=== PATIENT | male | born 1990 | race Caucasian/White ===

== ENCOUNTER 2016-11-28 14:08 | Emergency (ER) | payer SELFPAY ==
[~2016-11-28] VITALS: Ht 162.6 cm; Wt 63.5 kg
--- NOTE | 2016-11-28 14:16 | NUR ---
PT BEING INAPPROPIATE DURING TRIAGE. PT STATES USING POT DAILY AND IT IS NOT CONSIDERED DRUG.
--- NOTE | 2016-11-28 14:34 | NUR ---
Patient discharged to home in stable conditon. Written and verbal after care instructions given. Patient verbalizes understanding of instructions. Patient has avulsion on the right index finger, dry dressing placed, no further bleeding noted. No further distress noted. Ambulated from ER with stable gait. All belonings with patient.
[2016-11-28 14:35] VITALS: BP 112/67
== END 2016-11-28 14:37 | disposition home or self-care (01) ==
LOC: ER 14:11
DX: S61.300A Unspecified open wound of right index finger with damage to nail, initial encounter (principal); W25.XXXA Contact with sharp glass, initial encounter; Y93.89 Activity, other specified; Y99.8 Other external cause status; Y92.89 Other specified places as the place of occurrence of the external cause
CPT/HCPCS: A4663

== ENCOUNTER 2018-01-31 10:48 | Inpatient (IN) | payer MEDICAID ==
[~2018-01-31] VITALS: Ht 172.7 cm; Wt 67.6 kg
[2018-01-31] VITALS (13 sets, daily range): BP systolic 96–127; BP diastolic 23–76
[2018-01-31] MEDS ORDERED: ONDANSETRON 4 MG/2 ML VIAL IV ONE ×2 (11:00→13:00)
[2018-01-31] MEDS ORDERED: MORPHINE SULFATE 2 MG/1 ML DISP.SYRIN IV ONE ×2 (11:00→13:00)
[2018-01-31] MEDS ORDERED: IV NORMAL SALINE 1000 ML BAG IV ONE ×2 (11:00→11:45)
[2018-01-31] MEDS ORDERED: ONDANSETRON 4 MG/2 ML VIAL ONE ×2 (11:02→12:54)
[2018-01-31] MEDS ORDERED: MORPHINE SULFATE 4 MG/1 ML DISP.SYRIN ONE ×2 (11:02→12:53)
[2018-01-31 11:09] LABS: BASOPHILS # (AUTO) 0.1 K/uL (0.0-8.0); BASOPHILS % (AUTO) 0.6 % (0.0-2.0); EOSINOPHILS % (AUTO) 0.1 % (0.0-7.0); HEMATOCRIT 38.9 % (36.7-47.1); HEMOGLOBIN 13.1 g/dL (12.5-16.3); LYMPHOCYTES # (AUTO) 1.5 K/uL (20.0-40.0); LYMPHOCYTES % (AUTO) 9.5 % (20.5-51.5); MEAN CORPUSCULAR HEMOGLOBIN 30.2 uug (23.8-33.4); MEAN CORPUSCULAR HGB CONC 34 g/dL (32.5-36.3); MEAN CORPUSCULAR VOLUME 89.9 fL (73.0-96.2); MONOCYTES # (AUTO) 0.9 K/uL (2.0-10.0); NEUTROPHILS # (AUTO) 12.8 K/uL (1.8-8.9); NEUTROPHILS % (AUTO) 83.8 % (38.5-71.5); PLATELET COUNT (AUTO) 258 K/uL (152-348); RED BLOOD CELL COUNT(AUTO) 4.32 MIL/uL (4.06-5.63); WHITE BLOOD COUNT (AUTO) 15.2 K/uL (3.6-10.2)
--- NOTE | 2018-01-31 11:11 | NUR ---
PT IS IN BED #1B. DR CARBAJAL EVALUATED THE PT.
[2018-01-31 11:21] LABS: CREATININE 0.8 mg/dL (0.6-1.3); POTASSIUM 3.7 mmol/L (3.5-5.1)
--- NOTE | 2018-01-31 11:25 | NUR ---
CODE SEPSIS WAS CALLED BY DR CARBAJAL. CODE SEPSIS PROTOCOL STARTED.
[2018-01-31 11:33] LABS: BILIRUBIN,DIRECT 0.1 mg/dL (0.0-0.2); BILIRUBIN,TOTAL 0.6 mg/dL (0.2-1.0); TOTAL PROTEIN, SERUM 7.4 g/dL (6.4-8.2)
--- NOTE | 2018-01-31 11:42 | NUR ---
DR GUAMAN WAS CALLED BY DR CARBAJAL REQUEST, WAITING EOR CALL BACK.
[2018-01-31] MEDS ORDERED: CEFTRIAXONE 1 G in IV DEXTROSE 5% 50 ML IV ONE (11:45)
[2018-01-31] MEDS ORDERED: AZITHROMYCIN IV 500 MG in IV DEXTROSE 5% 250 ML IV ONE (11:45)
[2018-01-31] MEDS ORDERED: AZITHROMYCIN 500 MG VIAL IV ONE (11:49)
[2018-01-31 11:50] LABS: *BILIRUBIN,URIN NEGATIVE (NEGATIVE); *BLOOD, URINE NEGATIVE (NEGATIVE); *CLARITY,URINE CLEAR (CLEAR); *KETONES,URINE NEGATIVE (NEGATIVE); *PROTEIN,URINE 1+ (NEGATIVE); *UROBILINOGEN,URINE 0.2 E.U./dl (NORMAL); LEUKOCYTE ESTERASE ,URINE NEGATIVE (NEGATIVE); NITRITE, URINE NEGATIVE (NEGATIVE); UGLUCOSE NEGATIVE (NEGATIVE)
[2018-01-31] MEDS ORDERED: CEFTRIAXONE 1 G VIAL ONE (11:50)
[2018-01-31 12:08] LABS: *COLOR,URINE DARK YELLOW (YELLOW)
[2018-01-31 12:10] LABS: BACTERIA,URINE FEW /HPF (NONE SEEN); MUCUS,URINE FEW /LPF (0-FEW); SQUAMOUS EPITHELIAL CELL,UR FEW /HPF (NONE SEEN)
[2018-01-31 12:42] LABS: *AMPHETAMINE, URINE NEGATIVE (NEGATIVE); *BARBITURATE, URINE NEGATIVE (NEGATIVE); *CANNABINOID, URINE POSITIVE (NEGATIVE); *COCCAINE, URINE NEGATIVE (NEGATIVE); *OPIATE, URINE POSITIVE (NEGATIVE); *PHENCYCLIDINE SCREEN,URINE NEGATIVE (NEGATIVE)
[2018-01-31] MEDS ORDERED: ACETAMINOPHEN ES 500 MG TABLET ONE (12:48)
[2018-01-31] MEDS ORDERED: ACETAMINOPHEN ES 500 MG TABLET PO ONE (13:00)
[2018-01-31] MEDS ORDERED: IOHEXOL 350 100 ML INFUS..BTL ONE (13:06)
[2018-01-31] MEDS ORDERED: IV NORMAL SALINE 100 ML ONE (13:06)
[2018-01-31] MEDS ORDERED: ALBUTEROL SULFATE 2.5 MG/3 ML NEBU NEB ONE (13:15)
[2018-01-31] MEDS ORDERED: ONDANSETRON 4 MG/2 ML VIAL IV PRN (13:15)
[2018-01-31] MEDS ORDERED: IPRATROPIUM BROMIDE 0.5 MG/2.5 ML NEBU NEB ONE (13:15)
[2018-01-31] MEDS ORDERED: IPRATROPIUM BROMIDE 0.5 MG/2.5 ML NEBU ONE (13:23)
[2018-01-31] MEDS ORDERED: ALBUTEROL SULFATE 2.5 MG/3 ML NEBU ONE (13:23)
[2018-01-31] MEDS ORDERED: NITROGLYCERIN 0.4 MG/TAB BOTTLE SL PRN (13:30)
[2018-01-31] MEDS ORDERED: IPRATROPIUM BROMIDE 0.5 MG/2.5 ML NEBU NEB PRN (13:45)
[2018-01-31] MEDS ORDERED: ALBUTEROL SULFATE 2.5 MG/3 ML NEBU NEB PRN (13:45)
[2018-01-31] MEDS: ASPIRIN EC 81 MG TABLET.DR PO SCH (13:45)
[2018-01-31] MEDS: THIAMINE HCL 100 MG TABLET PO SCH (14:00)
[2018-01-31] MEDS: MULTIVITAMINS,THERAPEUTIC TABLET PO SCH (14:00)
[2018-01-31] MEDS: IV NS 1000 ML 1,000 ML IV PRN ×2 (14:00→23:55)
[2018-01-31] MEDS: FOLIC ACID 1 MG TABLET PO SCH (14:00)
--- NOTE | 2018-01-31 14:20 | NUR ---
PT WAS TRANSFERED TO ROOM #3 CCU. REPORT WAS GIVEN TO CCU RN.
[2018-01-31] MEDS: PANTOPRAZOLE SODIUM 40 MG TABLET.DR PO SCH (14:25)
[2018-01-31] MEDS ORDERED: ALBUTEROL SULFATE 2.5 MG/ 0.5 ML NEBU NEB PRN (14:30)
--- NOTE | 2018-01-31 14:39 | NUR ---
Clinical Pharmacy Note: Vancomycin Dosing per Pharmacy Subjective: Vancomycin IV to start on this 27 yo male patient for pna Objective: BUN 12/Scr 0.8 WBC 15.2 Temperature 103.4 Assessment/Plan: Will start vancomycin 1000mg IVPB Q9hr for a predicted vancomycin steady state trough level of 16.4 mcg/ml. 1st dose is due today at 1600. Will draw a vancomycin trough level prior to the 4th dose of vancomycin (not ordered yet). Will monitor renal function and adjust vancomycin dose, if needed, should renal function change significantly. Will follow daily.
[2018-01-31 15:12] LABS: ABG BASE EXCESS -2.3 mmol/L; ABG HCO3 21.7 mmol/L; ABG PH 7.411 (7.350-7.450); ABG PO2 88.3 mmHg (75.0-100.0); ABG SITE RIGHT RADIAL; ABG TOTAL HEMOGLOBIN 11.9 G/dL (13.5-18.0); MetHb 0.5 % (0.0-1.5); O2Hb 94.7 % (94.0-97.0)
[2018-01-31] MEDS ORDERED: VANCOMYCIN IV 1 G in PREMIXED 0 EACH IV SCH (16:00)
[2018-01-31] MEDS: MORPHINE SULFATE 2 MG/1 ML DISP.SYRIN IV PRN ×2 (16:51→20:30)
[2018-01-31] MEDS: LORAZEPAM 0.5 MG TABLET PO PRN ×2 (16:51→23:55)
[2018-01-31] MEDS: PIPERACILLIN/TAZOBACTAM/D5W 50 ML IV SCH ×2 (18:10→23:55)
--- NOTE | 2018-01-31 19:30 | NUR ---
Report received; patient AAO. Tachypneic, with shallow and occasional grunting respirations. Patient claims with pain on inspiration. O2 at 10 L MAsk. Sat above 95%. Will monitor. Assessment done. Addendum: 02/01/18 at 0108 by BRANDT OH RN Amended: Links added.
--- NOTE | 2018-01-31 20:30 | NUR ---
Medicated with Morphine IV for chest pain/tightness. Seen by Kyrie CHAVEZ. Addendum: 02/01/18 at 0111 by BRANDT OH RN Amended: Links added.
[2018-01-31] MEDS ORDERED: ENOXAPARIN SODIUM 30 MG/0.3 ML DISP.SYRIN SUBCUT SCH (21:00)
--- NOTE | 2018-01-31 21:00 | NUR ---
Morphine effective. BP stable.
[2018-01-31] MEDS: LEVOFLOXACIN 750MG/D5W 750 MG in PREMIXED 1 EACH IV SCH (21:16)
--- NOTE | 2018-01-31 23:55 | NUR ---
Patient mildly agitated. Stood up at side of bed to void. Claims still with mid chest pain/tightness during inspiration. Ativan given.
[2018-02-01] VITALS (18 sets, daily range): BP systolic 109–143; BP diastolic 51–78
--- NOTE | 2018-02-01 | NUR ---
Up to BS with very little assistance; gait steady. Had a soft brown BM. Bath given. Patient cooperative. Tolerated care fairly well. Back to bed without problems.
[2018-02-01] MEDS ORDERED: MORPHINE SULFATE 4 MG/1 ML DISP.SYRIN ONE ×2 (00:41→05:15)
[2018-02-01] MEDS: MORPHINE SULFATE 2 MG/1 ML DISP.SYRIN IV PRN ×4 (00:41→20:31)
--- NOTE | 2018-02-01 00:45 | NUR ---
Ate some jello; no swallowing difficulty. O2 changed to 4L NC per patient's request. Sat 94%. Will monitor.
[2018-02-01] MEDS: PIPERACILLIN/TAZOBACTAM/D5W 50 ML IV SCH ×3 (05:22→18:10)
[2018-02-01 05:49] LABS: BASOPHILS % (AUTO) 0.3 % (0.0-2.0); EOSINOPHILS # (AUTO) 0.1 K/uL (0.0-0.7); EOSINOPHILS % (AUTO) 0.8 % (0.0-7.0); HEMATOCRIT 31.9 % (36.7-47.1); HEMOGLOBIN 10.8 g/dL (12.5-16.3); LYMPHOCYTES # (AUTO) 1.6 K/uL (20.0-40.0); LYMPHOCYTES % (AUTO) 13.7 % (20.5-51.5); MEAN CORPUSCULAR HEMOGLOBIN 30.3 uug (23.8-33.4); MEAN CORPUSCULAR HGB CONC 34 g/dL (32.5-36.3); MEAN CORPUSCULAR VOLUME 89.4 fL (73.0-96.2); MONOCYTES # (AUTO) 0.5 K/uL (2.0-10.0); MONOCYTES % (AUTO) 4.3 % (0.0-11.0); NEUTROPHILS # (AUTO) 9.7 K/uL (1.8-8.9); NEUTROPHILS % (AUTO) 80.9 % (38.5-71.5); PLATELET COUNT (AUTO) 155 K/uL (152-348); RED BLOOD CELL COUNT(AUTO) 3.56 MIL/uL (4.06-5.63)
[2018-02-01 06:00] LABS: BILIRUBIN,TOTAL 1.1 mg/dL (0.2-1.0); CREATININE 0.8 mg/dL (0.6-1.3); MAGNESIUM 1.3 mg/dL (1.8-2.4); PHOSPHOROUS 2.8 mg/dL (2.5-4.9); POTASSIUM 3.6 mmol/L (3.5-5.1); TOTAL PROTEIN, SERUM 5.6 g/dL (6.4-8.2)
[2018-02-01 06:12] LABS: THYROID STIMULATING HORMONE 8.173 mIU/mL (0.358-3.740)
[2018-02-01] MEDS: PANTOPRAZOLE SODIUM 40 MG TABLET.DR PO SCH (06:40)
[2018-02-01] MEDS: LORAZEPAM 0.5 MG TABLET PO PRN ×2 (06:46→17:00)
--- NOTE | 2018-02-01 06:58 | NUR ---
O2 now @ 3L NC; sat above 94%. Patient still with mid chest sharp pain worst during inspiration. Patient claims "it's hard to take breaths." Medicated with Morphine IV PRN. VS stable. Addendum: 02/01/18 at 0659 by BRANDT OH RN Amended: Links added.
--- NOTE | 2018-02-01 07:30 | NUR ---
RECIEVED PT LYING IN BED VERY SOUND ASLEEP BUT EASILY AROUSABLE. NO APPARENT DISTRESS NOTED.
--- NOTE | 2018-02-01 08:30 | NUR ---
PT ATE VERY LITTLE AND WENT BACK TO SLEEP.
[2018-02-01] MEDS: MULTIVITAMINS,THERAPEUTIC TABLET PO SCH (08:46)
[2018-02-01] MEDS: FOLIC ACID 1 MG TABLET PO SCH (08:46)
[2018-02-01] MEDS: THIAMINE HCL 100 MG TABLET PO SCH (08:46)
[2018-02-01] MEDS: ASPIRIN EC 81 MG TABLET.DR PO SCH (08:46)
[2018-02-01] MEDS: IV NS 1000 ML 1,000 ML IV PRN (09:50)
--- NOTE | 2018-02-01 10:00 | NUR ---
SEEN AND EXAMINED BY DR MCKNIGHT, NO ORDERS MADE BUT OKEYED IF PT IS DOWNGRADED.
--- NOTE | 2018-02-01 10:15 | NUR ---
PT HAD AN ACCIDENT WITH LOOSE BM IN BED SMALL AMOUNT. CLEANED UP HIMSELF WITH MINIMAL ASSISTANCE. NO C/O ANY DISCOMFORTS.
[2018-02-01] MEDS ORDERED: POTASSIUM CHLORIDE 20 MEQ POWDER PACKET PO ONE (10:30)
[2018-02-01] MEDS ORDERED: MAGNESIUM SULFATE/D5W 100 ML IV SCH (10:30)
[2018-02-01] MEDS: MAGNESIUM SULFATE/D5W 100 ML IV SCH ×4 (10:54→14:32)
--- NOTE | 2018-02-01 10:55 | NUR ---
MAGNESIUM SULFATE 4GMS ORDERED BY MD DR BARRON FOR LOW MAG. LEVEL. KLOR 40MEQ ALSO GIVEN ORALLY ORDERED.
--- NOTE | 2018-02-01 11:45 | NUR ---
SEEN AND EXAMINED BY MARKOS GANG HEAD SAW OPERATOR WITH OK TO TRANSFER TO TELEMETRY. IVF RATE DOWN TO 80ML ORDERED.
--- NOTE | 2018-02-01 15:00 | NUR ---
SEEN AND EXAMINED BY DR MONIQUE WITH NEW ORDER. SWITCHED PT WITH YAMILA Lugo PER PT'S REQUEST SECONDARY TO YAMILA Lugo. PT IN CCU1 IS SO CONFUSED WITH PARANOIA.
[2018-02-01 15:12] LABS: IRON, SERUM 21 ug/dL (50-175)
[2018-02-01] MEDS: ACETAMINOPHEN 325 MG TABLET PO PRN (17:00)
[2018-02-01] MEDS: FERROUS SULFATE 325 MG TABEC PO SCH ×2 (18:10→20:30)
--- NOTE | 2018-02-01 18:49 | NUR ---
Pt transferred from CCU. Awake, A&O x4. Verbally responsive, noted with pleasant attitude. Pt admitted for PNA. Rec'd on Zosyn for PNA and IVF of NS @80ml/hr. No adverse side effects noted. On tele, SR in the 80s. Denies pain at this time. Denies dyspnea. NOted with dry cough. Will endorse to incoming nurse.
--- NOTE | 2018-02-01 19:25 | NUR ---
RECEIVED PT LYING IN BED. ASLEEP BUT EASILY AROUSE. AOX4. COMPLAINED OF MILD SOB. PROVIDED O2 AT 2LPM VIA NC. O2 SAT AT97%. IV SITE ON LEFT INTACT AND PATENT. IVF INFUSING. SR ON TELE AT 745/MIN. SAFETY MEASURE INITAITED AND CALL REZA WITHIN REACHED.
[2018-02-01] MEDS: LACTOBACILLUS RHAMNOSUS GG 1 EACH CAPSULE PO SCH (20:30)
[2018-02-01] MEDS: CEFEPIME HCL 1 G in IV DEXTROSE 5% 50 ML IV SCH (21:17)
[2018-02-01] MEDS: LEVOFLOXACIN 750MG/D5W 750 MG in PREMIXED 1 EACH IV SCH (21:50)
[2018-02-02] VITALS: BP 116/79
[2018-02-02] MEDS: LORAZEPAM 0.5 MG TABLET PO PRN ×3 (00:08→14:36)
[2018-02-02 04:00] VITALS: BP 116/76
[2018-02-02] MEDS: MORPHINE SULFATE 2 MG/1 ML DISP.SYRIN IV PRN ×3 (04:18→18:28)
[2018-02-02] MEDS: PANTOPRAZOLE SODIUM 40 MG TABLET.DR PO SCH (06:07)
[2018-02-02] MEDS: LEVOTHYROXINE SODIUM 25 MCG TABLET PO SCH (06:07)
--- NOTE | 2018-02-02 06:09 | NUR ---
AOX4. DENIES ANY FURTHER PAIN OR SOB. O2 SAT AT 96% WITH O2 AT 2LPM VIA NC IN PLACE. NO COUGHING NOTED. SLEPT WELL LAST NIGHT. IN NO ACUTE DISTRESS. SR ON TELE AT 65/MIN. IV ON LEFT AC INTACT AND PATENT. IVF INFUSING. SAFETY MEASURE MAINTAINED AND CALL REZA WITHIN REACH.
--- NOTE | 2018-02-02 07:00 | NUR ---
received report from backhoe operator. patient on bed asleep. A and O x 4. no acute distress noted, IV access on the left AC #18 running NS @80 cc/hr, infusing well. No complaints of pain/discomfort at this time. safety precs observed at all times. comfort measures provided. call light within reach. will continue to monitor closely.
[2018-02-02] MEDS: IV NS 1000 ML 1,000 ML IV PRN (07:05)
[2018-02-02 07:15] LABS: BASOPHILS % (AUTO) 0.2 % (0.0-2.0); EOSINOPHILS # (AUTO) 0.1 K/uL (0.0-0.7); EOSINOPHILS % (AUTO) 1.5 % (0.0-7.0); HEMATOCRIT 32.4 % (36.7-47.1); HEMOGLOBIN 11.1 g/dL (12.5-16.3); LYMPHOCYTES # (AUTO) 0.7 K/uL (20.0-40.0); MEAN CORPUSCULAR HEMOGLOBIN 30.9 uug (23.8-33.4); MEAN CORPUSCULAR HGB CONC 34 g/dL (32.5-36.3); MEAN CORPUSCULAR VOLUME 90.1 fL (73.0-96.2); MONOCYTES # (AUTO) 0.3 K/uL (2.0-10.0); MONOCYTES % (AUTO) 3.6 % (0.0-11.0); NEUTROPHILS # (AUTO) 8.1 K/uL (1.8-8.9); NEUTROPHILS % (AUTO) 86.7 % (38.5-71.5); PLATELET COUNT (AUTO) 175 K/uL (152-348); WHITE BLOOD COUNT (AUTO) 9.3 K/uL (3.6-10.2)
[2018-02-02 07:38] LABS: CARBON DIOXIDE 26 mmol/L (21-32); CHLORIDE 102 mmol/L (98-107); CREATININE 0.7 mg/dL (0.6-1.3); GLUCOSE 93 mg/dL (74-106); MAGNESIUM 1.8 mg/dL (1.8-2.4); POTASSIUM 3.8 mmol/L (3.5-5.1); UREA NITROGEN, BLOOD 5 mg/dL (7-18)
[2018-02-02] MEDS: LACTOBACILLUS RHAMNOSUS GG 1 EACH CAPSULE PO SCH ×2 (08:07→20:17)
[2018-02-02] MEDS: MULTIVITAMINS,THERAPEUTIC TABLET PO SCH (08:07)
[2018-02-02] MEDS: FERROUS SULFATE 325 MG TABEC PO SCH ×2 (08:08→20:17)
[2018-02-02] MEDS: ASPIRIN EC 81 MG TABLET.DR PO SCH (08:08)
[2018-02-02] MEDS: THIAMINE HCL 100 MG TABLET PO SCH (08:08)
[2018-02-02] MEDS: FOLIC ACID 1 MG TABLET PO SCH (08:08)
--- NOTE | 2018-02-02 08:30 | NUR ---
Patient complained of SOB and was feeling anxious, o2 sat 96%. Ativan 1mg PO q6PRN given. will continue to monitor.
[2018-02-02] MEDS: CEFEPIME HCL 1 G in IV DEXTROSE 5% 50 ML IV SCH ×2 (09:06→20:17)
[2018-02-02] MEDS: ACETAMINOPHEN 325 MG TABLET PO PRN (10:13)
--- NOTE | 2018-02-02 10:30 | NUR ---
PATIENT STATED HE HAD THE URGE TO SMOKE AND REQUESTED IF HE CAN HAVE A NICOTINE PATCH. INFORMED DR. BARRON, GAVE ORDER FOR NICOTINE PATCH 21 MG TD Q DAILY, ORDERS NOTED AND CARRIED OUT. WILL CONTINUE TO MONITOR
[2018-02-02] MEDS: NICOTINE 21 MG/24HR PATCH TD SCH (10:35)
[2018-02-02 11:43] VITALS: BP 98/56
--- NOTE | 2018-02-02 12:00 | NUR ---
PATIENT'S IV ACCESS ON THE LEFT AC #18 WAS LEAKING. REINSERTED IV ON THE RIGHT FOREARM #22, USING ASEPTIC TECHNIQUE, GOOD VENOUS RETURN NOTED AND WELL TOLERATED BY PATIENT. CONTINUED TO INFUSE IVF NS @80 CC/HR. WILL CONTINUE TO MONITOR.
[2018-02-02 15:41] VITALS: BP 108/73
[2018-02-02 17:18] LABS: *OCCULT BLOOD STOOL POSITIVE (NEGATIVE)
--- NOTE | 2018-02-02 18:21 | NUR ---
PATIENT IN ROOM. NO ACUTE DISTRESS NOTED. IV ACCESS ON THE RIGHT FOREARM #22 INTACT AND PATENT, IVF NS @ 80 CC/HR INFUSING WELL. STOOL SAMPLE FOR CDIFF SENT TO LAB EARLIER. PATIENT IS POSITIVE FOR OCCULT BLOOD IN STOOL. VITAL SIGNS WNL. NO COMPLAINTS OF PAIN AND DISCOMFORT AT THIS TIME. COMFORT MEASURES PROVIDED. ALL NEEDS ATTENDED AND ANTICIPATED. CALL LIGHT WITHIN REACH. WILL CONTINUE TO MONITOR.
--- NOTE | 2018-02-02 19:30 | NUR ---
PT IN ROOM ALERT AWAKE IN NO ACUTE DISTRESS. PT TO CONTINUE TO IV ABX THERAPY. NO FEVER OR CHILLS PRESENT. SKIN WARM TO TOUCH WITH NO FEVER. V/S ARE WNL. MAINTAINING IV HYDRATION CONTINUOUS. NS @80CC/HR. STATES MINOR PAIN WHILE COUGHING. ABLE TO MAKE NEEDS KNOWN. WILL CONTINUE TO MONITOR. CALL LIGHT WITHIN REACH.
[2018-02-02 20:00] VITALS: BP 117/81
[2018-02-02] MEDS: LEVOFLOXACIN 750 MG TABLET PO SCH (20:58)
--- NOTE | 2018-02-02 21:20 | NUR ---
PT C/O PAIN WHILE COUGH. MINIMAL PRODUCTIVE COUGH PRESENT AND STATES HE WANTS SOMETHING FOR SLEEP. DR GUAMAN MADE AWARE. NO REACTION TO RECENT ATB LEVAQUIN AND MAXEPIME. WILL CONTINUE TO MONITOR.
[2018-02-02] MEDS: GUAIFENESIN/DEXTROMETHORPHAN 5 ML UDC PO PRN (21:59)
[2018-02-02] MEDS: TEMAZEPAM 7.5 MG CAPSULE PO PRN (22:00)
[2018-02-03] MEDS: LORAZEPAM 0.5 MG TABLET PO PRN ×4 (03:19→23:15)
[2018-02-03] MEDS: MORPHINE SULFATE 2 MG/1 ML DISP.SYRIN IV PRN ×4 (03:20→21:27)
[2018-02-03 04:00] VITALS: BP 112/66
--- NOTE | 2018-02-03 05:49 | NUR ---
PT IN ROOM ASLEEP AT THIS TIME. RECENT MORPHINE AND ATIVAN GIVEN ABLE TO KEEP PT COMFORTABLE FROM HEADACHE. MAINTAINING IV FLUIDS OF NS AT 80ML/HR. CALL LIGHT PLACED WITHIN REACH. V/S ARE WNL.
[2018-02-03] MEDS: GUAIFENESIN/DEXTROMETHORPHAN 5 ML UDC PO PRN (05:59)
[2018-02-03] MEDS: PANTOPRAZOLE SODIUM 40 MG TABLET.DR PO SCH (06:00)
[2018-02-03] MEDS: LEVOTHYROXINE SODIUM 25 MCG TABLET PO SCH (06:00)
[2018-02-03 06:32] LABS: CARBON DIOXIDE 24 mmol/L (21-32); CHLORIDE 104 mmol/L (98-107); CREATININE 0.7 mg/dL (0.6-1.3); GLUCOSE 96 mg/dL (74-106); POTASSIUM 3.8 mmol/L (3.5-5.1); UREA NITROGEN, BLOOD 8 mg/dL (7-18)
[2018-02-03] MEDS: IV NS 1000 ML 1,000 ML IV PRN ×2 (06:40→18:49)
[2018-02-03 06:48] LABS: BASOPHILS % (AUTO) 0.3 % (0.0-2.0); EOSINOPHILS # (AUTO) 0.2 K/uL (0.0-0.7); HEMATOCRIT 33.1 % (36.7-47.1); HEMOGLOBIN 11.7 g/dL (12.5-16.3); LYMPHOCYTES % (AUTO) 17.8 % (20.5-51.5); MEAN CORPUSCULAR HEMOGLOBIN 31.2 uug (23.8-33.4); MEAN CORPUSCULAR HGB CONC 35 g/dL (32.5-36.3); MEAN CORPUSCULAR VOLUME 88.8 fL (73.0-96.2); MONOCYTES # (AUTO) 0.2 K/uL (2.0-10.0); MONOCYTES % (AUTO) 4.5 % (0.0-11.0); NEUTROPHILS % (AUTO) 74.4 % (38.5-71.5); PLATELET COUNT (AUTO) 217 K/uL (152-348); RED BLOOD CELL COUNT(AUTO) 3.73 MIL/uL (4.06-5.63)
--- NOTE | 2018-02-03 07:00 | NUR ---
PATIENT RECEIVED IN BED ASLEEP, NO ACUTE DISTRESS NOTED. IV ACCESS ON THE RIGHT FOREARM #22, INTACT AND PATENT, RUNNING IVF NS @80CC/HR, INFUSING WELL. NO COMPLAINTS OF PAIN AND DISCOMFORT. INDEPENDENT WITH ADLS. COMFORT MEASURES PROVIDED. CALL LIGHT WITHIN REACH. WILL CONTINUE TO MONITOR CLOSELY.
[2018-02-03 07:02] LABS: WHITE BLOOD COUNT (AUTO) 5.4 K/uL (3.6-10.2)
[2018-02-03] MEDS: LACTOBACILLUS RHAMNOSUS GG 1 EACH CAPSULE PO SCH ×2 (08:05→20:22)
[2018-02-03] MEDS: FOLIC ACID 1 MG TABLET PO SCH (08:06)
[2018-02-03] MEDS: MULTIVITAMINS,THERAPEUTIC TABLET PO SCH (08:06)
[2018-02-03] MEDS: ASPIRIN EC 81 MG TABLET.DR PO SCH (08:06)
[2018-02-03] MEDS: FERROUS SULFATE 325 MG TABEC PO SCH ×2 (08:06→20:22)
[2018-02-03] MEDS: NICOTINE 21 MG/24HR PATCH TD SCH (08:06)
[2018-02-03] MEDS: THIAMINE HCL 100 MG TABLET PO SCH (08:06)
--- NOTE | 2018-02-03 08:42 | NUR ---
NOTED IV ON THE RIGHT FOREARM #22 WAS DISLODGED, IV CATHETER STILL INTACT. REINSERTED IV ON THE LEFT HAND #22, USING ASEPTIC TECHNIQUE, GOOD VENOUS RETURN NOTED. WELL TOLERATED BY PATIENT. CONTINUED IVF NS @ 80 CC/HR. INFUSING WELL. WILL CONTINUE TO MONITOR CLOSELY.
[2018-02-03] MEDS: CEFEPIME HCL 1 G in IV DEXTROSE 5% 50 ML IV SCH ×2 (08:56→20:22)
[2018-02-03] MEDS: ACETAMINOPHEN 325 MG TABLET PO PRN ×2 (10:58→23:16)
[2018-02-03 11:41] VITALS: BP 113/73
[2018-02-03 12:15] LABS: *OCCULT BLOOD STOOL POSITIVE (NEGATIVE)
[2018-02-03 16:03] VITALS: BP 93/64
--- NOTE | 2018-02-03 18:53 | NUR ---
PATIENT REQUESTED IF HE CAN TAKE MONEY OUT OF [employer]. WENT DOWN TO GET MONEY FROM [employer]ONG WITH NURSING INTERNET MARKETING INTERN. BEFORE GIVING TO PATIENT RECOUNTED WHAT WAS IN ENVELOPE WITH ANDREA RN TO WITNESS. GAVE ENVELOPE TO PATIENT, HE TOOK OUT $100 IN TOTAL. RECOUNTED MONEY WITH ANDREA RN WITH CORRECT DOCUMENTATION, ASKED PATIENT TO SIGN ENVELOPE AND RETURNED IT TO [employer] WITH NURSING INTERNET MARKETING INTERN.
--- NOTE | 2018-02-03 18:56 | NUR ---
PATIENT IN STABLE CONDITION. NO SOB NOTED. NO COMPLAINS OF PAIN AND DISCOMFORT AT THIS TIME. IV SITE ON LEFT HAND #22 INTACT AND PATENT. IVF INFUSING WELL, PATIENT SHOWERED TODAY. VITAL SIGNS WNL ALL NEEDS ATTENDED AND ANTICIPATED. CALL LIGHT WITHIN REACH. WILL ENDORSE ACCORDINGLY
[2018-02-03 20:00] VITALS: BP 107/74
[2018-02-03] MEDS: LEVOFLOXACIN 750 MG TABLET PO SCH (20:22)
[2018-02-03] MEDS: TEMAZEPAM 7.5 MG CAPSULE PO PRN (21:27)
[2018-02-04] MEDS: MORPHINE SULFATE 2 MG/1 ML DISP.SYRIN IV PRN ×2 (04:55→11:44)
[2018-02-04 05:06] VITALS: BP 104/62
--- NOTE | 2018-02-04 06:00 | NUR ---
SLEPT WELL, CONTINUE TO HAVE BACK PAIN AND GIVEN MORPHINE PRN, REFUSED FLUIDS AFTER MIDNIGHT, DRINKS FLUIDS WELL, NON PRODUCTIVE COUGH, CONTINUE WITH ANTIBIOTICS,VSS,AFEBRILE.
[2018-02-04] MEDS: PANTOPRAZOLE SODIUM 40 MG TABLET.DR PO SCH (06:08)
[2018-02-04] MEDS: LEVOTHYROXINE SODIUM 25 MCG TABLET PO SCH (06:08)
[2018-02-04 06:49] LABS: BASOPHILS % (AUTO) 0.4 % (0.0-2.0); EOSINOPHILS # (AUTO) 0.2 K/uL (0.0-0.7); EOSINOPHILS % (AUTO) 4.4 % (0.0-7.0); HEMATOCRIT 35.8 % (36.7-47.1); HEMOGLOBIN 12.3 g/dL (12.5-16.3); LYMPHOCYTES # (AUTO) 1.2 K/uL (20.0-40.0); LYMPHOCYTES % (AUTO) 27.6 % (20.5-51.5); MEAN CORPUSCULAR HEMOGLOBIN 30.7 uug (23.8-33.4); MEAN CORPUSCULAR HGB CONC 34 g/dL (32.5-36.3); MEAN CORPUSCULAR VOLUME 89.6 fL (73.0-96.2); MONOCYTES # (AUTO) 0.3 K/uL (2.0-10.0); MONOCYTES % (AUTO) 7.8 % (0.0-11.0); NEUTROPHILS # (AUTO) 2.6 K/uL (1.8-8.9); NEUTROPHILS % (AUTO) 59.8 % (38.5-71.5); PLATELET COUNT (AUTO) 244 K/uL (152-348); WHITE BLOOD COUNT (AUTO) 4.3 K/uL (3.6-10.2)
--- NOTE | 2018-02-04 07:00 | NUR ---
Received pt sleeping on his left side in a semi fowlers position. No apparent s/s of SOB, pain, distress or discomfort at this time.
[2018-02-04 07:02] LABS: BILIRUBIN,TOTAL 0.2 mg/dL (0.2-1.0); CREATININE 0.8 mg/dL (0.6-1.3); MAGNESIUM 1.9 mg/dL (1.8-2.4); PHOSPHOROUS 5.1 mg/dL (2.5-4.9); POTASSIUM 4.3 mmol/L (3.5-5.1); TOTAL PROTEIN, SERUM 7.1 g/dL (6.4-8.2)
[2018-02-04] MEDS: NICOTINE 21 MG/24HR PATCH TD SCH (08:08)
[2018-02-04] MEDS: THIAMINE HCL 100 MG TABLET PO SCH (08:08)
[2018-02-04] MEDS: MULTIVITAMINS,THERAPEUTIC TABLET PO SCH (08:08)
[2018-02-04] MEDS: FOLIC ACID 1 MG TABLET PO SCH (08:08)
[2018-02-04] MEDS: CEFEPIME HCL 1 G in IV DEXTROSE 5% 50 ML IV SCH (08:08)
[2018-02-04] MEDS: FERROUS SULFATE 325 MG TABEC PO SCH (08:09)
[2018-02-04] MEDS: LORAZEPAM 0.5 MG TABLET PO PRN (08:09)
[2018-02-04] MEDS: LACTOBACILLUS RHAMNOSUS GG 1 EACH CAPSULE PO SCH (08:09)
[2018-02-04] MEDS: GUAIFENESIN/DEXTROMETHORPHAN 5 ML UDC PO PRN (08:17)
--- NOTE | 2018-02-04 08:23 | NUR ---
Pt compliant with medication and nursing care. Ativan for anxiety, cough medication, ATB and scheduled meds given. Pt states he is feel better after morphine was given to from the previous nurse. No s/s of immediate SOB, distress, discomfort or pain. Pt is alert and oriented times 4, waking television and able to eat breakfast on his own. Noted IV line on his left hand with no IV hydration running. Bed at lowest position for safety and call light within reach for assistance
--- NOTE | 2018-02-04 11:14 | NUR ---
Pt asked to shower, supplies given to him for personal hygiene. Pt was able to walk steady to the shower room. No apparent s/s of any immediate distress or SOB. Pt asked if he was getting discharged today, it was informed to the patient there was possible discharge today but no orders as of right now
[2018-02-04] MEDS ORDERED: HYDROCODONE/APAP 5-325MG TABLET PO PRN (11:45)
[2018-02-04 11:46] VITALS: BP 98/53
[2018-02-04] MEDS ORDERED: LEVO750T21 PO (12:34)
[2018-02-04] MEDS ORDERED: FERR325T28 PO (12:34)
[2018-02-04] MEDS ORDERED: HYDR-3326 PO (12:34)
[2018-02-04] MEDS ORDERED: MULT-24 PO (12:34)
[2018-02-04] MEDS ORDERED: GUAI5SYR PO (12:34)
[2018-02-04] MEDS ORDERED: LACT1CAP57 PO (12:34)
[2018-02-04] MEDS ORDERED: FOLI1TAB16 PO (12:34)
[2018-02-04] MEDS ORDERED: ACET325T53 PO (12:34)
[2018-02-04] MEDS ORDERED: THIA100T13 PO (12:34)
[2018-02-04] MEDS ORDERED: PANT40TA2 PO (12:46)
--- NOTE | 2018-02-04 14:00 | NUR ---
Pt was discharged with orders. No apparent s/s of pain, distress, discomfort or SOB. Personal belongings accounted for, contraband accounted for and money from save was counted in front of him with tire building supervisor and myself and accounted for. Prescriptions explained to him and IV line removed. Discharge papers signed for. Pt states that a friend was picking him up. Pt was guided to the elevators.
== END 2018-02-04 14:00 | disposition home or self-care (01) | DRG 720 ==
LOC: ER 10:48 → CCU 14:11 → TELE 02-01 18:34 → MED 02-02 17:42
PROVIDERS: ADMIT Internal Medicine; ATTEND Internal Medicine
DX: A41.9 Sepsis, unspecified organism (principal); J96.01 Acute respiratory failure with hypoxia; J69.0 Pneumonitis due to inhalation of food and vomit; E44.0 Moderate protein-calorie malnutrition; J91.8 Pleural effusion in other conditions classified elsewhere; F10.229 Alcohol dependence with intoxication, unspecified; D50.9 Iron deficiency anemia, unspecified; R65.20 Severe sepsis without septic shock; Z59.0 Homelessness; Z89.021 Acquired absence of right finger(s); Y90.8 Blood alcohol level of 240 mg/100 ml or more; F12.90 Cannabis use, unspecified, uncomplicated; F11.90 Opioid use, unspecified, uncomplicated; Z82.49 Family history of ischemic heart disease and other diseases of the circulatory system; F17.290 Nicotine dependence, other tobacco product, uncomplicated; E03.9 Hypothyroidism, unspecified; Z68.22 Body mass index [BMI] 22.0-22.9, adult; E83.42 Hypomagnesemia; E83.51 Hypocalcemia; E83.39 Other disorders of phosphorus metabolism; R19.5 Other fecal abnormalities; R19.7 Diarrhea, unspecified; E80.6 Other disorders of bilirubin metabolism; R73.9 Hyperglycemia, unspecified
CPT/HCPCS: 36415; 36600; 70030-TC; 71045; 71275; 80307; 83550; 83605; 83735; 84100; 84443; 85025; 85730; 87040; 87070; 87086; 87400; 93005; 93307; A4663; A9150; G0480; J0456; J0692; J0696; J1650; J1956; J2270; J2405; J2543; J3370; J3475; J3490; J3590; J7030; J7060; Q9967

== ENCOUNTER 2018-02-22 08:05 | Emergency (ER) | payer MEDICAID ==
[~2018-02-22] VITALS: Ht 170.2 cm; Wt 63.5 kg
[~2018-02-22 08:05] MED LIST: ACET325T53 PO; FERR325T28 PO; FOLI1TAB16 PO; GUAI5SYR PO; HYDR-3326 PO; LACT1CAP57 PO; LEVO750T21 PO; MULT-24 PO; PANT40TA2 PO; THIA100T13 PO
--- NOTE | 2018-02-22 08:13 | NUR ---
PT STATES THAT HE IS NOT TAKING ANY HOME MEDICATION ON USUAL BASIS.
--- NOTE | 2018-02-22 08:15 | NUR ---
DR WOLF AT THE BEDSIDE FOR MSE.
[2018-02-22 08:44] VITALS: BP 130/89
--- NOTE | 2018-02-22 08:44 | NUR ---
Patient discharged to home in stable conditon. Written and verbal after care instructions given. Patient verbalizes understanding of instructions.
== END 2018-02-22 08:45 | disposition home or self-care (01) ==
LOC: ER 08:05
DX: R07.89 Other chest pain (principal); Z79.2 Long term (current) use of antibiotics; Z79.891 Long term (current) use of opiate analgesic; Z79.899 Other long term (current) drug therapy
CPT/HCPCS: 71045; 93005; A4663

== ENCOUNTER 2018-05-03 10:01 | Emergency (ER) | payer MEDICAID ==
[~2018-05-03] VITALS: Ht 172.7 cm; Wt 63.5 kg
--- NOTE | 2018-05-03 10:14 | NUR ---
PT IS IN ROOM #2A, WAITING FOR DR CORTÉS EVALUATION.
[2018-05-03] MEDS ORDERED: LIDOCAINE HCL 1% 20 ML VIAL IJ ONE (10:30)
--- NOTE | 2018-05-03 10:30 | NUR ---
DR CORTÉS EVALUATED THE PT.
[2018-05-03] MEDS ORDERED: SULFAMETH/TRIMETH 800/160 MG TABLET ONE (10:44)
[2018-05-03] MEDS ORDERED: HYDROCODONE/APAP 10-325 MG TABLET ONE (10:45)
[2018-05-03] MEDS ORDERED: SULFAMETH/TRIMETH 800/160 MG TABLET PO ONE (10:45)
[2018-05-03] MEDS ORDERED: HYDROCODONE/APAP 10-325 MG TABLET PO ONE (10:45)
[2018-05-03] MEDS ORDERED: predniSONE 50 MG TABLET PO ONE (10:45)
[2018-05-03] MEDS ORDERED: predniSONE 50 MG TABLET ONE (10:45)
--- NOTE | 2018-05-03 11:24 | NUR ---
PT WAS D/C TO HOME. D/C INSTRUCTIONS GIVEN TO THE PT.
[2018-05-03 11:25] VITALS: BP 131/69
== END 2018-05-03 11:25 | disposition home or self-care (01) ==
LOC: ER 10:03
DX: L02.416 Cutaneous abscess of left lower limb (principal); J45.909 Unspecified asthma, uncomplicated; F17.210 Nicotine dependence, cigarettes, uncomplicated; Z59.0 Homelessness; Z79.899 Other long term (current) drug therapy; Z79.2 Long term (current) use of antibiotics
CPT/HCPCS: 10060; 71045; 99284; A4217; A4663; J3490; J7512

== ENCOUNTER 2018-05-05 14:40 | Emergency (ER) | payer MEDICAID ==
[~2018-05-05] VITALS: Ht 172.7 cm; Wt 63.5 kg
--- NOTE | 2018-05-05 14:45 | NUR ---
MSE DONE BY DR WOLF IN ROOM 04B PATIENT A & O X4.
--- NOTE | 2018-05-05 14:55 | NUR ---
Patient discharged to home in stable conditon. Written and verbal after care instructions given. Patient verbalizes understanding of instructions.
[2018-05-05 14:58] VITALS: BP 102/61
== END 2018-05-05 15:00 | disposition home or self-care (01) ==
LOC: ER 14:41
DX: Z48.01 Encounter for change or removal of surgical wound dressing (principal); Z79.2 Long term (current) use of antibiotics; Z79.899 Other long term (current) drug therapy
CPT/HCPCS: 99283; A4663

== ENCOUNTER 2018-05-15 15:41 | Inpatient (IN) | payer MEDICAID ==
[~2018-05-15] VITALS: Ht 170.2 cm; Wt 67.1 kg
[2018-05-15] VITALS (7 sets, daily range): BP systolic 111–131; BP diastolic 60–77
--- NOTE | 2018-05-15 15:41 | NUR ---
Patient is AOx4, MORENO, respiration:easy, calm & cooperative, denies suicidal or homicidal thoughts at the moment.
--- NOTE | 2018-05-15 15:58 | NUR ---
Patient's father said that the patient has a bottle of NORCO with 2 pills left, MD notified.
--- NOTE | 2018-05-15 16:00 | NUR ---
[employer] officers x2 are bedside.
[2018-05-15 16:30] LABS: BASOPHILS % (AUTO) 0.2 % (0.0-2.0); EOSINOPHILS # (AUTO) 0.1 K/uL (0.0-0.7); EOSINOPHILS % (AUTO) 0.6 % (0.0-7.0); HEMATOCRIT 48.2 % (36.7-47.1); HEMOGLOBIN 16.3 g/dL (12.5-16.3); LYMPHOCYTES # (AUTO) 1.1 K/uL (20.0-40.0); LYMPHOCYTES % (AUTO) 8.2 % (20.5-51.5); MEAN CORPUSCULAR HGB CONC 34 g/dL (32.5-36.3); MEAN CORPUSCULAR VOLUME 91.7 fL (73.0-96.2); MONOCYTES # (AUTO) 0.4 K/uL (2.0-10.0); MONOCYTES % (AUTO) 2.8 % (0.0-11.0); NEUTROPHILS # (AUTO) 11.6 K/uL (1.8-8.9); NEUTROPHILS % (AUTO) 88.2 % (38.5-71.5); PLATELET COUNT (AUTO) 319 K/uL (152-348); RED BLOOD CELL COUNT(AUTO) 5.25 MIL/uL (4.06-5.63); WHITE BLOOD COUNT (AUTO) 13.1 K/uL (3.6-10.2)
[2018-05-15] MEDS ORDERED: IV NS 1000 ML 1,000 ML IV ONE (16:30)
[2018-05-15 16:41] LABS: CARBON DIOXIDE 27 mmol/L (21-32); CHLORIDE 100 mmol/L (98-107); CREATININE 1.1 mg/dL (0.6-1.3); GLUCOSE 166 mg/dL (74-106); POTASSIUM 4.2 mmol/L (3.5-5.1); UREA NITROGEN, BLOOD 12 mg/dL (7-18)
[2018-05-15 16:47] LABS: ALANINE AMINOTRANSFERASE 26 U/L (16-63); ALKALINE PHOSPHATASE 75 U/L (50-136); ASPARTATE AMINOTRANSFERASE 21 U/L (15-37); BILIRUBIN,TOTAL 0.5 mg/dL (0.2-1.0); CREATINE KINASE, TOTAL 67 U/L (39-308); TOTAL PROTEIN, SERUM 8.6 g/dL (6.4-8.2)
[2018-05-15 16:52] LABS: ACETAMINOPHEN < 2.0 ug/mL (10-30)
[2018-05-15 17:10] LABS: ETHANOL < 3 MG/DL (0-0)
--- NOTE | 2018-05-15 17:13 | NUR ---
Patient is resting comfortably on gurney with eyes closed, easily arousable, calm & cooperative when awake.
--- NOTE | 2018-05-15 17:21 | NUR ---
Dr Monique went to the waiting room & talked to patient's father. Patient's father came with his own dog.
[2018-05-15] MEDS ORDERED: LORAZEPAM 2 MG/1 ML VIAL ONE ×2 (17:33→17:53)
--- NOTE | 2018-05-15 17:39 | NUR ---
1731: Patient was now desaturating to high 70's then the spo2 levels spontaneously went up to low 90's. Patient had seizure?, +frothy oral secretions of small amount noted, incontinent of urine, suctioned orally. MD notified. Oxygen mask started. Pt is unarousable at the moment. 1733: Patient opened his eyes, non-verbal still, MORENO, respiration: easy 1739: ABG by resp therapist Olit in progress.
[2018-05-15] MEDS ORDERED: LORAZEPAM 2 MG/1 ML VIAL IV ONE ×3 (17:45→18:45)
[2018-05-15] MEDS ORDERED: LEVETIRACETAM 500 MG/5 ML VIAL IV ONE (18:00)
[2018-05-15] MEDS ORDERED: PROPOFOL 200 MG/20 ML BOTTLE ONE (18:01)
[2018-05-15] MEDS: PROPOFOL 100 ML IV PRN ×6 (18:06→22:41)
[2018-05-15] MEDS ORDERED: PROPOFOL 100 ML ONE ×2 (18:16→20:16)
[2018-05-15] MEDS ORDERED: PROPOFOL 200 MG/20 ML BOTTLE IV ONE ×2 (18:23→18:30)
--- NOTE | 2018-05-15 18:26 | NUR ---
PT INTUBATED WITH ET TUBE SIZE 7.5 TAPED AT APPROX. 22 CM AT MID LIP. PLACED ON VENT GOLDSMITH WITH SETTINGS OF AC 14, VT 500 AND FIO2 50% ON PEEP 5. PT WAS SEDATED AND IS NON RESPONSIVE AT THIS TIME. CXR BEING DONE AND PT WILL BE TRANSFERRED TO CT. ABG TO FOLLOW POST ORDER FROM
[2018-05-15] MEDS ORDERED: CEFTRIAXONE 1 G in IV DEXTROSE 5% 50 ML IV ONE (18:30)
[2018-05-15] MEDS ORDERED: SUCCINYLCHOLINE CHLORIDE 200 MG/10 ML VIAL IV ONE ×2 (18:30→20:39)
[2018-05-15] MEDS ORDERED: LEVETIRACETAM IV 500 MG in IV DEXTROSE 5% 100 ML IV ONE (18:30)
[2018-05-15] MEDS ORDERED: CEFTRIAXONE 1 G VIAL ONE (18:31)
--- NOTE | 2018-05-15 18:38 | NUR ---
175- Another seizure noted (tonic-clonic) about 2minutes, at bedside. 1800- MD will intubate & protect the airway 1803-intubated by dr Monique w/o incident 1837-Patient still intermittently has seizures, MD aware
[2018-05-15 18:39] LABS: *BILIRUBIN,URIN NEGATIVE (NEGATIVE); *BLOOD, URINE 1+ (NEGATIVE); *CLARITY,URINE CLOUDY (CLEAR); *COLOR,URINE YELLOW (YELLOW); *KETONES,URINE NEGATIVE (NEGATIVE); *PROTEIN,URINE 2+ (NEGATIVE); *UROBILINOGEN,URINE 0.2 E.U./dl (NORMAL); LEUKOCYTE ESTERASE ,URINE NEGATIVE (NEGATIVE); NITRITE, URINE NEGATIVE (NEGATIVE); PH,URINE 5.5 (5.0-8.0); UGLUCOSE NEGATIVE (NEGATIVE)
--- NOTE | 2018-05-15 18:45 | NUR ---
Patient is still intermittently agitated with seizures, Dr Hampton aware, still for CT scan
[2018-05-15 18:49] LABS: BACTERIA,URINE NONE SEEN /HPF (NONE SEEN); SQUAMOUS EPITHELIAL CELL,UR FEW /HPF (NONE SEEN); URINE AMORPHOUS URATE FEW /HPF; WBC,URINE 0-3 /HPF (0-3)
--- NOTE | 2018-05-15 18:50 | NUR ---
PT RECEIVED ORALLY INTUBATED WITH A SIZE 7.5 ETT, ETT IS SECURED WITH AN ANCHOR-FAST APPROX. 22CM @ THE LIP. VENT PARAMETERS AND ALARMS CHECKED, ALARMS ARE AUDIBLE. AMBU-BAG AT BEDSIDE. PT TRANSPORTED ON VENT TO CT AND BACK WITHOUT INCIDENT. PT BACK IN ER, ABG DRAWN, NO VENT CHANGES MADE. PT IS TOLERATING VENT SETTING WELL, NO RESP. DISTRESS NOTED AT THIS TIME. VENT PLUGGED INTO RED OUTLET. SUCTION PRN. WILL CONTINUE TO MONITOR.
[2018-05-15 18:56] LABS: *AMPHETAMINE, URINE POSITIVE (NEGATIVE); *BARBITURATE, URINE NEGATIVE (NEGATIVE); *CANNABINOID, URINE POSITIVE (NEGATIVE); *COCCAINE, URINE NEGATIVE (NEGATIVE); *OPIATE, URINE NEGATIVE (NEGATIVE); *PHENCYCLIDINE SCREEN,URINE NEGATIVE (NEGATIVE)
[2018-05-15] MEDS ORDERED: ROCURONIUM BROMIDE 50 MG/5 ML VIAL IV ONE ×2 (19:00→20:39)
--- NOTE | 2018-05-15 19:01 | NUR ---
CT SCAN IN PROGRESS
--- NOTE | 2018-05-15 19:26 | NUR ---
SBAR to DAVE Alatorre
[2018-05-15 19:34] LABS: ABG BASE EXCESS -5.7 mmol/L; ABG PCO2 30.3 mmHg (35.0-45.0); ABG PH 7.391 (7.350-7.450); ABG PO2 146.4 mmHg (75.0-100.0); ABG SITE LEFT RADIAL; ABG TOTAL HEMOGLOBIN 14.1 G/dL (13.5-18.0); COHb 1.1 % (0.5-1.5); MetHb 0.4 % (0.0-1.5); O2Hb 97.5 % (94.0-97.0); VENT MODE VENT - A/C; VT, ABG 500 mL
--- NOTE | 2018-05-15 19:43 | NUR ---
CCU nurse Alireza accepted hands off report
--- NOTE | 2018-05-15 19:44 | NUR ---
ETT may need to be advance, Dr Hampton & DAVE Alatorre notified
[2018-05-15] MEDS ORDERED: MIDAZOLAM HCL 100 MG in IV DEXTROSE 5% 80 ML IV PRN ×2 (20:00→21:00)
--- NOTE | 2018-05-15 20:05 | NUR ---
ET ADVANCED AT BEDSIDE BY RT
--- NOTE | 2018-05-15 20:19 | NUR ---
ORDERED VERSED ENDORSED TO ICU NURSE, DAVE PATEL
--- NOTE | 2018-05-15 20:20 | NUR ---
Pt. admitted to ICU, under care of Dr. HOLLINGSWORTH Belongs List completed
--- NOTE | 2018-05-15 20:25 | NUR ---
PT TRANSPORTED FROM ER TO CCU-1 ON VENT WITHOUT INCIDENT. SPUTUM SAMPLE COLLECTED. ETT ADVANCED 3CM PER MD REQUEST, ETT IS SECURED AT 25CM. PT IS TOLERATING VENT SETTINGS WELL, NO RESP. DISTRESS NOTED AT THIS TIME. WILL CONTINUE TO MONITOR.
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
[2018-05-15] MEDS ORDERED: MAGNESIUM HYDROXIDE 30 ML LIQUID UDC PO PRN (21:00)
[2018-05-15] MEDS ORDERED: PROPOFOL 100 ML IV PRN (21:00)
[2018-05-15] MEDS ORDERED: ACETAMINOPHEN 325 MG TABLET PO PRN (21:00)
[2018-05-15] MEDS ORDERED: Z GUARD REMEDY PASTE 57 GM TUBE TOP PRN (21:00)
[2018-05-15] MEDS ORDERED: ONDANSETRON 4 MG/2 ML VIAL IV PRN (21:00)
[2018-05-15] MEDS: IV NS 1000 ML 1,000 ML IV PRN (21:36)
[2018-05-16] VITALS (25 sets, daily range): BP systolic 105–161; BP diastolic 58–104
[2018-05-16] MEDS: PROPOFOL 100 ML IV PRN ×7 (02:15→21:35)
[2018-05-16 05:06] LABS: BASOPHILS % (AUTO) 0.3 % (0.0-2.0); EOSINOPHILS % (AUTO) 0.5 % (0.0-7.0); HEMATOCRIT 38.1 % (36.7-47.1); HEMOGLOBIN 12.7 g/dL (12.5-16.3); LYMPHOCYTES # (AUTO) 2.2 K/uL (20.0-40.0); LYMPHOCYTES % (AUTO) 20.8 % (20.5-51.5); MEAN CORPUSCULAR HEMOGLOBIN 30.5 uug (23.8-33.4); MEAN CORPUSCULAR HGB CONC 34 g/dL (32.5-36.3); MEAN CORPUSCULAR VOLUME 91.2 fL (73.0-96.2); MONOCYTES # (AUTO) 0.9 K/uL (2.0-10.0); MONOCYTES % (AUTO) 8.2 % (0.0-11.0); NEUTROPHILS # (AUTO) 7.4 K/uL (1.8-8.9); NEUTROPHILS % (AUTO) 70.2 % (38.5-71.5); PLATELET COUNT (AUTO) 271 K/uL (152-348); RED BLOOD CELL COUNT(AUTO) 4.18 MIL/uL (4.06-5.63); WHITE BLOOD COUNT (AUTO) 10.5 K/uL (3.6-10.2)
[2018-05-16 05:29] LABS: CREATININE 0.9 mg/dL (0.6-1.3); MAGNESIUM 2.3 mg/dL (1.8-2.4); PHOSPHOROUS 3.1 mg/dL (2.5-4.9); POTASSIUM 3.2 mmol/L (3.5-5.1)
[2018-05-16] MEDS: IV NS 1000 ML 1,000 ML IV PRN ×2 (05:53→15:40)
[2018-05-16 08:25] LABS: ABG BASE EXCESS -2.4 mmol/L; ABG HCO3 19.5 mmol/L; ABG PCO2 26.1 mmHg (35.0-45.0); ABG PH 7.491 (7.350-7.450); ABG PO2 122.9 mmHg (75.0-100.0); ABG SITE RIGHT RADIAL; ABG TOTAL HEMOGLOBIN 12.8 G/dL (13.5-18.0); COHb 0.8 % (0.5-1.5); MetHb 0.2 % (0.0-1.5); O2Hb 97.7 % (94.0-97.0); VENT MODE VENT - A/C; VT, ABG 500 mL
[2018-05-16] MEDS: PANTOPRAZOLE SODIUM 40 MG VIAL IV SCH (08:30)
--- NOTE | 2018-05-16 09:20 | NUR ---
Dr. Elkins attending physician in the unit to see and examine patient; full report given orders received see order hx.
--- NOTE | 2018-05-16 09:56 | NUR ---
Neurology services Dr. Reis in the unit to examine patient; full report given, see orders. also made aware of ct. and EEG test done and pending results.
[2018-05-16] MEDS: ENOXAPARIN SODIUM 40 MG/0.4 ML DISP.SYRIN SQ SCH (10:04)
[2018-05-16] MEDS: LEVETIRACETAM IV 500 MG in IV DEXTROSE 5% 100 ML IV SCH ×2 (10:07→20:33)
--- NOTE | 2018-05-16 10:34 | NUR ---
Pulmonary services Dr. Ledesma in the unit to examine patient; full report given. Addendum: 05/16/18 at 1034 by JERRELL GO RN See order hx.
--- NOTE | 2018-05-16 10:55 | NUR ---
Vent changes as ordere Rate aleta to 12/min done by RT. Valentine
--- NOTE | 2018-05-16 12:30 | NUR ---
A visit from pt's father Mr. juliette tidwell requesting an update on son's condition.
[2018-05-16] MEDS: POTASSIUM CHLORIDE 50 ML IV SCH ×3 (12:40→14:09)
--- NOTE | 2018-05-16 14:00 | NUR ---
pt's father Camille Joseshantaiona in the unit to visit and one more time requesting and update from .
--- NOTE | 2018-05-16 15:00 | NUR ---
Kory Loyd in the unit and notified of pt's father request of a courtesy call with an update.
--- NOTE | 2018-05-16 16:43 | NUR ---
A call from pt's father, this time Rach in med-surge and informed.
[2018-05-16] MEDS ORDERED: CEFTRIAXONE 1 G in IV DEXTROSE 5% 50 ML IV SCH (18:00)
--- NOTE | 2018-05-16 18:15 | NUR ---
At this time Linda Pearl notified of sustained bradycardia in the mid-40's. Addendum: 05/16/18 at 1912 by JERRELL GO RN No new orders received.
[2018-05-16] MEDS: LORAZEPAM 2 MG/1 ML VIAL IV PRN ×2 (18:49→20:57)
--- NOTE | 2018-05-16 21:00 | NUR ---
PATIENT FATHER CAME AND UPDATED WITH PATIENTS CONDITION , HE IS AWARE PATIENT SON DX: DRUG OVERDOSE AND AHD A SEIZURE . INTUBATED FOR AIRWAY PROTECTION .
--- NOTE | 2018-05-16 22:00 | NUR ---
DICATED TO DOCTOR MORGAN PATIENT BLOOD PRESSURE,171/105 RECYCLE 104/106,142/104,WITH ORDER FOR PRN CLONIDINE VIA NGT ,PLACE NGT AND KUB FOR VERIFICATION OF PLACEMENT .
[2018-05-16] MEDS ORDERED: CLONIDINE HCL 0.1 MG TABLET GT PRN (22:15)
--- NOTE | 2018-05-16 23:18 | NUR ---
PT ON CONT GOLDSMITH VENT WITH 7.5 ET/TUBE IN PLACE , 25CM LIP LINE, WITH ANCHOR FAST IN PLACE AND SECURED, WITH VENT SETTINGS, A/C 12, VT 500ML ,30%, PEEP5, PT SEDATED, WITH MOSTLY CONTROLLED VENTILATION, ADJUST ET/TUBE CHECK CUFF 22CM PRESSURE, NO VENT CHANGES MADE AT THIS TIME, ALL ALARMS OK, AMBU BAG AT BEDSIDE, CHANGE HME ,ORAL CARE DONE , WEANING ON DAY SHIFT TRIAL ON CPAP, ABG AT 0900. Yariel MOODYP Addendum: 05/16/18 at 3131 by SWATHI WILLSON Amended: Links added.
[2018-05-17] VITALS (23 sets, daily range): BP systolic 93–138; BP diastolic 26–104
[2018-05-17] MEDS: IV NS 1000 ML 1,000 ML IV PRN ×2 (01:54→13:54)
[2018-05-17] MEDS: PROPOFOL 100 ML IV PRN ×2 (01:54→04:51)
[2018-05-17] MEDS: LORAZEPAM 2 MG/1 ML VIAL IV PRN ×6 (03:11→22:10)
[2018-05-17 05:49] LABS: BASOPHILS % (AUTO) 0.5 % (0.0-2.0); EOSINOPHILS # (AUTO) 0.1 K/uL (0.0-0.7); EOSINOPHILS % (AUTO) 1.7 % (0.0-7.0); HEMATOCRIT 36.2 % (36.7-47.1); HEMOGLOBIN 12.1 g/dL (12.5-16.3); LYMPHOCYTES # (AUTO) 1.6 K/uL (20.0-40.0); LYMPHOCYTES % (AUTO) 32.8 % (20.5-51.5); MEAN CORPUSCULAR HEMOGLOBIN 31.2 uug (23.8-33.4); MEAN CORPUSCULAR HGB CONC 34 g/dL (32.5-36.3); MEAN CORPUSCULAR VOLUME 92.7 fL (73.0-96.2); MONOCYTES # (AUTO) 0.4 K/uL (2.0-10.0); MONOCYTES % (AUTO) 8.1 % (0.0-11.0); NEUTROPHILS # (AUTO) 2.8 K/uL (1.8-8.9); NEUTROPHILS % (AUTO) 56.9 % (38.5-71.5); PLATELET COUNT (AUTO) 209 K/uL (152-348); WHITE BLOOD COUNT (AUTO) 4.9 K/uL (3.6-10.2)
[2018-05-17 06:23] LABS: CREATININE 0.8 mg/dL (0.6-1.3); MAGNESIUM 2.2 mg/dL (1.8-2.4); PHOSPHOROUS 3.8 mg/dL (2.5-4.9); POTASSIUM 3.6 mmol/L (3.5-5.1)
--- NOTE | 2018-05-17 07:00 | NUR ---
PT IS ORALLY INTUBATED WITH A 7.5 ETT, APPROXIMATELY 25CM AT THE LIP. ANCHOR FAST IS IN PLACE AND SECURED AT THIS TIME. GOLDSMITH VENT SETTINGS ARE AC 12, VT 500, PEEP +5, FIO2 30%. WEANING TO BE DONE AT 0800/ABG TO BE DONE AT 0900 PER ORDER. ETT MOVED TO MIDDLE SIDE OF MOUTH. ORAL CARE DONE. HME CHANGED. SUCTIONED SMALL AMOUNT OF THICK, WHITE/YELLOW SECRETIONS. VENT ALARMS CHECKED, ARE ON AND AUDIBLE. AMBU BAG IS AT BEDSIDE. NO S/S OF RESPIRATORY DISTRESS NOTED AT THIS TIME. WILL CONTINUE TO MONITOR.
--- NOTE | 2018-05-17 08:00 | NUR ---
PT PLACED ON CPAP - PSV OF 6, PEEP +5, FIO2 30%. PROPOFOL TITRATED DOWN PER NURSE. SUCTIONED SMALL AMOUNT OF THICK, YELLOW SECRETIONS AT THIS TIME. VITAL SIGNS REMAIN STABLE. WILL CONTINUE TO MONITOR.
--- NOTE | 2018-05-17 08:00 | NUR ---
LYLY WILLSON PUT HIM ON CPAP PER WEANING ORDERS. PROPOFOL RUNNING AT 30MCG/KG PATIENT IS AROUSABLE AND ABLE TO FOLLOW COMMANDS.
--- NOTE | 2018-05-17 08:13 | NUR ---
PLACED PATIENT ON RESTRAINTS. REPEATED TO SLOWLY BRING UP HIS HANDS, AND MOVES HIS TONGUE TO EXTUBATE. NEEDS REPEATED REORIENTATION, INSTRUCTION OF PROCESS THAT HE IS GOING THROUGH. PATIENT RELAXES AND LAYS HEAD BACK DOWN.
[2018-05-17] MEDS: PANTOPRAZOLE SODIUM 40 MG VIAL IV SCH (08:23)
[2018-05-17] MEDS: ENOXAPARIN SODIUM 40 MG/0.4 ML DISP.SYRIN SQ SCH (08:31)
[2018-05-17] MEDS: LEVETIRACETAM IV 500 MG in IV DEXTROSE 5% 100 ML IV SCH ×2 (08:46→20:08)
[2018-05-17 09:19] LABS: ABG BASE EXCESS -5.9 mmol/L; ABG HCO3 17.2 mmol/L; ABG PCO2 27.2 mmHg (35.0-45.0); ABG PH 7.418 (7.350-7.450); ABG PO2 133.4 mmHg (75.0-100.0); ABG SITE RIGHT BRACHIAL; COHb 0.3 % (0.5-1.5); MetHb 0.3 % (0.0-1.5); O2Hb 98.2 % (94.0-97.0); VENT MODE VENT - CPAP
--- NOTE | 2018-05-17 09:49 | NUR ---
DOCTOR KAYDEN IN THE UNIT. POST WEANING ABG GIVEN. PATIENT TOLERATING WEANING. SMALL PERIODS OF AGITATION AND WANTING TO PULL OUT. PATIENT JUST NEEDS FREQUENT INSTRUCTION AND WILL FOLLOW.
[2018-05-17] MEDS ORDERED: DC PROPOFOL ONCE EXTUBATED XX PRN (10:00)
[2018-05-17] MEDS ORDERED: ALBUTEROL SULFATE 2.5 MG/3 ML NEBU NEB PRN (10:00)
--- NOTE | 2018-05-17 10:15 | NUR ---
PT EXTUBATED AT THIS TIME PER MD'S VERBAL ORDERS. NO COMPLICATIONS DURING PROCEDURE. PT IS ON 3Lpm VIA NASAL CANNULA. PT TOLERATING WELL. WILL TITRATE ACCORDINGLY. AMBU BAG IS AT BEDSIDE. WILL CONTINUE TO MONITOR.
--- NOTE | 2018-05-17 10:15 | NUR ---
PATIENT EXTUBATED BY RT AND DOCTOR CEDRIC VOGT.
[2018-05-17] MEDS: PIPERACILLIN/TAZOBACTAM/D5W 50 ML IV SCH ×3 (11:06→22:09)
[2018-05-17] MEDS: ALBUTEROL SULFATE 2.5 MG/3 ML NEBU NEB SCH ×3 (11:15→19:29)
--- NOTE | 2018-05-17 14:00 | NUR ---
patient asking for water. given patient sips of water. no coughing, or gurgling noted. patient has gag, swallow, and cough intact. no complications noted when giving orals.
--- NOTE | 2018-05-17 19:30 | NUR ---
ROUNDS MADE PATIENT VERY RESTLESS AND AGITATED WANTS TO GO HOME .ATIVAN GIVEN PRN ,ADVISED TO STAY IN THE HOSPITAL AND EDUCATED HE JUST GOT EXTUBATED THIS MORNING AND NEEDS TO BE MONITORED FOR RESPIRATORY AND SEIZURES.PHONE PROVIDED AND CALL LIGHT PLACE WITH IN REACH ,ADVISED TO CALL FOR ASSISTANCE .
[2018-05-17] MEDS: NICOTINE 14 MG/24HR PATCH TD SCH (19:41)
--- NOTE | 2018-05-17 19:41 | NUR ---
NICODERM PATCH ADMINISTERED .PLACED LEFT CHEST AREA .
--- NOTE | 2018-05-17 21:00 | NUR ---
PATIENTS FATHER CAME AND SPOKED WITH PATIENT AND UPDATED WITH PATIENT STATUS AND CONDITION .
--- NOTE | 2018-05-17 22:00 | NUR ---
PATIENT VERBALIZED HIS HUNGRY WANTS JELLO GIVEN AND CHOCOLATE PUDDING . PATIENT ABLE TO FEED SELF . HOB UP .
[2018-05-18] VITALS (10 sets, daily range): BP systolic 90–138; BP diastolic 24–82
[2018-05-18] MEDS: IV NS 1000 ML 1,000 ML IV PRN (00:19)
[2018-05-18] MEDS: PIPERACILLIN/TAZOBACTAM/D5W 50 ML IV SCH (04:48)
[2018-05-18] MEDS: LORAZEPAM 2 MG/1 ML VIAL IV PRN ×2 (05:14→08:43)
[2018-05-18 05:27] LABS: BASOPHILS % (AUTO) 0.7 % (0.0-2.0); EOSINOPHILS # (AUTO) 0.1 K/uL (0.0-0.7); HEMATOCRIT 36.3 % (36.7-47.1); HEMOGLOBIN 12.4 g/dL (12.5-16.3); LYMPHOCYTES # (AUTO) 1.5 K/uL (20.0-40.0); LYMPHOCYTES % (AUTO) 34.6 % (20.5-51.5); MEAN CORPUSCULAR HGB CONC 34 g/dL (32.5-36.3); MEAN CORPUSCULAR VOLUME 90.9 fL (73.0-96.2); MONOCYTES # (AUTO) 0.4 K/uL (2.0-10.0); MONOCYTES % (AUTO) 8.5 % (0.0-11.0); NEUTROPHILS # (AUTO) 2.4 K/uL (1.8-8.9); NEUTROPHILS % (AUTO) 54.2 % (38.5-71.5); PLATELET COUNT (AUTO) 212 K/uL (152-348); WHITE BLOOD COUNT (AUTO) 4.4 K/uL (3.6-10.2)
--- NOTE | 2018-05-18 05:45 | NUR ---
ATIVAN GIVEN PRN FOR AGITATION AND RESTLESS . CONTINUE TO EDUCATE AND PROVIDE SAFETY ADVISED TO USED THE CALL LIGHT ,PATIENT KEEP ASKING WHEN HIS GOING HOME AND IF WERE KEEPING HIM HERE ANOTHER DAY,ADVISED MD WITH VISIT HIM THIS AM .
[2018-05-18 05:52] LABS: CREATININE 0.8 mg/dL (0.6-1.3); PHOSPHOROUS 5.2 mg/dL (2.5-4.9); POTASSIUM 3.7 mmol/L (3.5-5.1)
[2018-05-18] MEDS: ALBUTEROL SULFATE 2.5 MG/3 ML NEBU NEB SCH (06:48)
[2018-05-18 07:59] LABS: ABG BASE EXCESS -1.5 mmol/L; ABG HCO3 21.3 mmol/L; ABG PCO2 30.4 mmHg (35.0-45.0); ABG PH 7.463 (7.350-7.450); ABG PO2 95.8 mmHg (75.0-100.0); ABG SITE RIGHT RADIAL; COHb 0.9 % (0.5-1.5); MetHb 0.2 % (0.0-1.5); O2Hb 96.5 % (94.0-97.0); VENT MODE ROOM AIR
[2018-05-18] MEDS: PANTOPRAZOLE SODIUM 40 MG VIAL IV SCH (08:30)
[2018-05-18] MEDS: ENOXAPARIN SODIUM 40 MG/0.4 ML DISP.SYRIN SQ SCH (08:31)
[2018-05-18] MEDS: NICOTINE 14 MG/24HR PATCH TD SCH (08:31)
[2018-05-18] MEDS: LEVETIRACETAM IV 500 MG in IV DEXTROSE 5% 100 ML IV SCH (08:33)
--- NOTE | 2018-05-18 08:44 | NUR ---
DOCTOR ANNALISE IN THE UNIT TO SEE PATIENT. PATIENT CLEARANCE FOR DISCHARGE FROM HER STAND POINT. WILL NEED TO FOLLOW UP AT CLINIC.
--- NOTE | 2018-05-18 09:11 | NUR ---
DISCONTINUED ARROYO PER DOCTOR IDOKO ORDER.
--- NOTE | 2018-05-18 09:52 | NUR ---
DOCTOR MONIQUE IN UNIT. INITIATE MOBILIZATION AND AMBULATION FOR STABILITY. PATIENT CLEARED ON PULMONARY STAND POINT.
--- NOTE | 2018-05-18 10:35 | NUR ---
PATIENT AMBULATED AROUND 2ND FLOOR UNIT WITH FLOOR MONITOR. PATIENT STABLE AND NO ABNORMALITIES.
[2018-05-18] MEDS ORDERED: AMOX-430 PO (11:19)
[2018-05-18] MEDS ORDERED: LEVE500T9 PO (11:19)
--- NOTE | 2018-05-18 11:27 | NUR ---
NURIA CHAVEZ IS IN UNIT DOING DISCHARGE FOR THE PATIENT. FATHER OF THE PATIENT HERE TO CHIEF ENGINEER PATIENT AND TAKE HIM HOME.
--- NOTE | 2018-05-18 12:15 | NUR ---
PATIENT SIGNED DISCHARGE PAPERWORK. PATIENT AND FATHER OF PATIENT SPOKE TO NURIA CHAVEZ PRIOR TO DISCHARGE. IV LINE AND ALL OTHER MEDICAL DEVICES DISCONTINUED.
[2018-05-18] MEDS ORDERED: LEVETIRACETAM 500 MG TABLET PO SCH (21:00)
[2018-05-19] MEDS ORDERED: PANTOPRAZOLE SODIUM 40 MG TABLET.DR PO SCH (07:00)
== END 2018-05-18 12:30 | disposition home or self-care (01) | DRG 850 ==
LOC: ER 15:42 → CCU 19:44
PROVIDERS: ADMIT Internal Medicine; ATTEND Internal Medicine
PROC: 5A1945Z Respiratory Ventilation, 24-96 Consecutive Hours (ICD-10-PCS; principal; 2018-05-15)
PROC: 0BH17EZ Insertion of Endotracheal Airway into Trachea, Via Natural or Artificial Opening (ICD-10-PCS; principal; 2018-05-15)
PROC: 0DH673Z Insertion of Infusion Device into Stomach, Via Natural or Artificial Opening (ICD-10-PCS; 2018-05-16)
DX: T43.621D Poisoning by amphetamines, accidental (unintentional), subsequent encounter (principal); J96.01 Acute respiratory failure with hypoxia; G92 Toxic encephalopathy; J45.902 Unspecified asthma with status asthmaticus; E87.2 Acidosis; F10.239 Alcohol dependence with withdrawal, unspecified; G40.501 Epileptic seizures related to external causes, not intractable, with status epilepticus; F11.10 Opioid abuse, uncomplicated; F12.10 Cannabis abuse, uncomplicated; E87.6 Hypokalemia; D64.9 Anemia, unspecified; Z87.01 Personal history of pneumonia (recurrent); F17.210 Nicotine dependence, cigarettes, uncomplicated; J01.80 Other acute sinusitis; R00.1 Bradycardia, unspecified; T42.75XA Adverse effect of unspecified antiepileptic and sedative-hypnotic drugs, initial encounter; Y92.230 Patient room in hospital as the place of occurrence of the external cause; R07.89 Other chest pain; Y90.0 Blood alcohol level of less than 20 mg/100 ml
CPT/HCPCS: 36415; 36600; 70030-TC; 70450; 71045; 74018; 80307; 83735; 84100; 85025; 87040; 87070; 93005; 94002; 94003; 94640; 94664; 95819; A4663; C9113; G0480; G0480-TC; J0330; J0696; J1650; J1953; J2060; J2250; J2543; J3480; J3490; J7030; J7060

== ENCOUNTER 2018-08-06 21:56 | Emergency (ER) | payer MEDICAID ==
[~2018-08-06] VITALS: Ht 172.7 cm; Wt 59.0 kg
[~2018-08-06 21:56] MED LIST changes: -ACET325T53 PO; +AMOX-430 PO; -FERR325T28 PO; -FOLI1TAB16 PO; -GUAI5SYR PO; -HYDR-3326 PO; -LACT1CAP57 PO; +LEVE500T9 PO; -LEVO750T21 PO; -MULT-24 PO; -PANT40TA2 PO; -THIA100T13 PO
--- NOTE | 2018-08-06 23:20 | NUR ---
MARY ALDANA AT BEDSIDE.
[2018-08-06] MEDS ORDERED: LORAZEPAM 2 MG/1 ML VIAL IM ONE (23:30)
[2018-08-06] MEDS ORDERED: FLUORESCEIN SODIUM 1 MG STRIP OP ONE (23:30)
[2018-08-06] MEDS ORDERED: TETRACAINE HCL 0.5% OPHT DROP 2 ML BOTTLE OP ONE (23:30)
[2018-08-06] MEDS ORDERED: LORAZEPAM 2 MG/1 ML VIAL ONE (23:34)
[2018-08-06] MEDS ORDERED: FLUORESCEIN SODIUM 1 MG STRIP ONE (23:34)
[2018-08-06] MEDS ORDERED: TETRACAINE HCL 0.5% OPHT DROP 2 ML BOTTLE ONE (23:34)
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
[2018-08-07] MEDS ORDERED: LORAZEPAM 2 MG/1 ML VIAL IM ONE
[2018-08-07] MEDS ORDERED: LORAZEPAM 2 MG/1 ML VIAL ONE ×2 (00:01→00:28)
--- NOTE | 2018-08-07 00:08 | NUR ---
Nolberto escamilla in [facility] - 08/07/18 at 0008 by JAKY XRAY AT BEDSIDE.
--- NOTE | 2018-08-07 00:20 | NUR ---
PT IS AGITATED, PACING IN THE HALLWAY. TOPLESS, VERBALLY AGGRESSIVE. PT ASKED TO RETURN TO BED.
--- NOTE | 2018-08-07 00:25 | NUR ---
CODE SARA CALLED. PT ATTEMPTING TO PUSH STAFF, NONCOOPERATIVE, CLENCHING FISTS. PT PLACED IN 4-POINT RESTRAINT PER MD ORDER. PMSC INTACT AND < 3 SECS POST RESTRAINT APPLICATION. WILL CONTINUE TO REASSESS PMSC Q15MIN. PT MEDICATED ORDERED BY THE MD.
[2018-08-07] MEDS ORDERED: HALOPERIDOL LACTATE 5 MG/1 ML VIAL ONE (00:27)
[2018-08-07] MEDS ORDERED: LORAZEPAM 2 MG/1 ML VIAL IV ONE (00:30)
[2018-08-07] MEDS ORDERED: HALOPERIDOL LACTATE 5 MG/1 ML VIAL IM ONE ×2 (00:30)
--- NOTE | 2018-08-07 00:46 | NUR ---
PT RESTING IN BED AT THIS TIME. PT CONTINUES TO GET OUT OF RESTRAINTS.
--- NOTE | 2018-08-07 01:42 | NUR ---
PT TAKEN TO RADIOLOGY FOR CT OF HEAD, ESCORTED BY . Addendum: 08/07/18 at 0316 by JAKY PT ESCORTED VIA KANDY. 4 POINT RESTRAINTS REMOVED DURING CT SCAN.
--- NOTE | 2018-08-07 02:05 | NUR ---
PT BACK IN ER FROM RADIOLOGY. PT IS ASLEEP. BILATERAL ANKLE RESTRAINTS WERE REMOVED.
--- NOTE | 2018-08-07 03:29 | NUR ---
PT AWAKE, PULLING OFF N/C, ATTEMPTING TO GET OUT OF BED. PT REORIENTED TO UNIT AND REASSURED OF HIS ENVIRONMENT. PT IS DROWSY AND SPEAKING INCOHERENTLY. VSS.
--- NOTE | 2018-08-07 05:15 | NUR ---
LAST WRIST RESTRAINT REMOVED. PT IS AWAKE, SELF-AMBULATING WITHOUT DIFFICULTY.
--- NOTE | 2018-08-07 05:33 | NUR ---
DPatient discharged to home in stable conditon. Written and verbal after care instructions given. Patient verbalizes understanding of instructions. ALL BELONGINGS W/ PT. PT D/C HOME UNDER THE CARE OF EMIILY, FRIEND. PER PT, PT WILL BE DRIVEN HOME BY FRIEND IN PRIVATE VEHICLE.
[2018-08-07 05:34] VITALS: BP 122/62
== END 2018-08-07 05:25 | disposition home or self-care (01) ==
LOC: ER 22:00
DX: S00.83XA Contusion of other part of head, initial encounter (principal); F10.129 Alcohol abuse with intoxication, unspecified; F17.200 Nicotine dependence, unspecified, uncomplicated; W51.XXXA Accidental striking against or bumped into by another person, initial encounter; Y93.89 Activity, other specified; Y92.89 Other specified places as the place of occurrence of the external cause; Y99.8 Other external cause status
CPT/HCPCS: 70450; 70480; 72125; A4663; J1630; J2060

== ENCOUNTER 2020-08-28 20:40 | Emergency (ER) | payer MEDICAID ==
[~2020-08-28] VITALS: Ht 180.3 cm; Wt 77.1 kg
--- NOTE | 2020-08-28 20:40 | NUR ---
BIB [facility] AND [employer]. Per report patient expressed suicidal ideation and is supected of taking drugs and alcohol. Patient arrives uncooperative and incoherent and refusing to answer any questions. Patient placed directly in room 5a, [employer] placed patient in handcuffs to the gurney. Pt placed on cont quality assurance monitor and cont pulse ox. [employer] remain at bedside.
[2020-08-28] MEDS ORDERED: OLANZAPINE 10 MG VIAL IM ONE ×2 (20:45→20:51)
--- NOTE | 2020-08-28 20:55 | NUR ---
Pt placed on 5150 hold (DTS,GD) by [employer].
--- NOTE | 2020-08-28 20:55 | NUR ---
[employer] removed the handcuffs and left. Velcro restraints placed to bilat wirst as ordered by .
--- NOTE | 2020-08-28 20:56 | NUR ---
Nursing extra gang supervisor notified that pt has been placed on 5150 hold and needs a 1:1 sitter.
--- NOTE | 2020-08-28 21:10 | NUR ---
Pt is cooperative at this time. Restrains removed. Pt provided urine specimen. plant guard at bedside for 1:1 observation.
[2020-08-28] MEDS ORDERED: levETIRAcetam 250 MG TABLET ONE (21:11)
[2020-08-28] MEDS ORDERED: levETIRAcetam 250 MG TABLET PO ONE (21:15)
[2020-08-28 21:29] LABS: *BILIRUBIN,URIN NEGATIVE (NEGATIVE); *BLOOD, URINE NEGATIVE (NEGATIVE); *CLARITY,URINE CLEAR (CLEAR); *COLOR,URINE YELLOW (YELLOW); *KETONES,URINE NEGATIVE (NEGATIVE); *UROBILINOGEN,URINE 0.2 E.U./dl (NORMAL); BASOPHILS % (AUTO) 0.4 % (0.0-2.0); EOSINOPHILS # (AUTO) 0.1 K/uL (0.0-0.7); EOSINOPHILS % (AUTO) 1.5 % (0.0-7.0); HEMOGLOBIN 14.1 g/dL (12.5-16.3); LEUKOCYTE ESTERASE ,URINE TRACE (NEGATIVE); LYMPHOCYTES # (AUTO) 2.6 K/uL (20.0-40.0); LYMPHOCYTES % (AUTO) 36.6 % (20.5-51.5); MEAN CORPUSCULAR HEMOGLOBIN 31.6 uug (23.8-33.4); MEAN CORPUSCULAR HGB CONC 35 g/dL (32.5-36.3); MEAN CORPUSCULAR VOLUME 91.5 fL (73.0-96.2); MONOCYTES # (AUTO) 0.6 K/uL (2.0-10.0); MONOCYTES % (AUTO) 8.4 % (0.0-11.0); NEUTROPHILS # (AUTO) 3.7 K/uL (1.8-8.9); NEUTROPHILS % (AUTO) 53.1 % (38.5-71.5); NITRITE, URINE NEGATIVE (NEGATIVE); PLATELET COUNT (AUTO) 231 K/uL (152-348); RED BLOOD CELL COUNT(AUTO) 4.48 MIL/uL (4.06-5.63); UGLUCOSE NEGATIVE (NEGATIVE)
[2020-08-28 21:39] LABS: CARBON DIOXIDE 27 mmol/L (21-32); CHLORIDE 100 mmol/L (98-107); GLUCOSE 101 mg/dL (74-106); POTASSIUM 3.3 mmol/L (3.5-5.1); UREA NITROGEN, BLOOD 9 mg/dL (7-18)
[2020-08-28 21:44] LABS: ALANINE AMINOTRANSFERASE 43 U/L (16-63); ALKALINE PHOSPHATASE 51 U/L (50-136); ASPARTATE AMINOTRANSFERASE 103 U/L (15-37); BILIRUBIN,DIRECT 0.1 mg/dL (0.0-0.2); BILIRUBIN,TOTAL 0.3 mg/dL (0.2-1.0); TOTAL PROTEIN, SERUM 6.9 g/dL (6.4-8.2)
[2020-08-28 21:45] LABS: ACETAMINOPHEN < 2.0 ug/mL (10-30)
[2020-08-28 21:46] LABS: ETHANOL 296 MG/DL (0-0)
[2020-08-28 21:49] LABS: *AMPHETAMINE, URINE POSITIVE (NEGATIVE); *CANNABINOID, URINE POSITIVE (NEGATIVE); *COCCAINE, URINE NEGATIVE (NEGATIVE); *OPIATE, URINE NEGATIVE (NEGATIVE); *PHENCYCLIDINE SCREEN,URINE NEGATIVE (NEGATIVE)
[2020-08-28] MEDS ORDERED: POTASSIUM BICARBONATE/CIT AC 25 MEQ TABLET.EFF PO ONE (22:00)
[2020-08-28] MEDS ORDERED: LORAZEPAM 0.5 MG TABLET PO ONE (22:10)
--- NOTE | 2020-08-28 22:10 | NUR ---
Pt is awake, alert and oriented x 3 at this time. Pt denies any suicidal or homicidal ideation. Pt is calm and cooperative.
[2020-08-28] MEDS ORDERED: POTASSIUM BICARBONATE/CIT AC 25 MEQ TABLET.EFF ONE (22:15)
[2020-08-28] MEDS ORDERED: LORAZEPAM 1 MG TABLET ONE (22:15)
--- NOTE | 2020-08-28 22:15 | NUR ---
Pt states he would like some medication to "help him relax and sleep". Pt medicated with Ativan 2mg po as per order. There is no sitter available now so the pt is under supervision of the nursing staff.
--- NOTE | 2020-08-28 22:30 | NUR ---
Pt ate dinner with good appetite.
[2020-08-28 23:08] LABS: BACTERIA,URINE NONE SEEN /HPF (NONE SEEN); RBC,URINE 0-3 /HPF (0-3); SQUAMOUS EPITHELIAL CELL,UR FEW /HPF (NONE SEEN); WBC,URINE 0-3 /HPF (0-3)
[2020-08-28] MEDS ORDERED: QUETIAPINE FUMARATE 25 MG TABLET PO ONE (23:30)
[2020-08-28] MEDS ORDERED: QUETIAPINE FUMARATE 200 MG TABLET ONE (23:31)
[2020-08-28] MEDS ORDERED: QUETIAPINE FUMARATE 100 MG TABLET ONE (23:31)
--- NOTE | 2020-08-28 23:37 | NUR ---
Pt requested Seroquel 500mg, states he takes it daily at HS.
[2020-08-28] MEDS ORDERED: diphenhydrAMINE 50 MG/1 ML VIAL ONE (23:56)
[2020-08-28] MEDS ORDERED: LORAZEPAM 2 MG/1 ML VIAL ONE (23:56)
--- NOTE | 2020-08-28 23:57 | NUR ---
Pt is agitated, pacing around in his room and states he wants to go home. notified and pt medicated as ordered. Pt is under direct supervision by myself at this time.
[2020-08-29] MEDS ORDERED: LORAZEPAM 2 MG/1 ML VIAL IM ONE
[2020-08-29] MEDS ORDERED: diphenhydrAMINE 50 MG/1 ML VIAL IM ONE
--- NOTE | 2020-08-29 00:10 | NUR ---
Spoke with Geronimo Carbone LCSW and he stated pt's ETOH level is too high and to call him back around 0800 regarding eval/palcement.
--- NOTE | 2020-08-29 02:00 | NUR ---
Pt sleeping with NAD noted.
--- NOTE | 2020-08-29 04:00 | NUR ---
Pt sleeping with NAD noted.
--- NOTE | 2020-08-29 06:57 | NUR ---
Pt sleeping with NAD noted. Report given to day shift.
--- NOTE | 2020-08-29 07:13 | NUR ---
Patient A&O x4. ambulatory with steady gait. denies any SI / HI / AH / VH. denies any pain or discomfort at this time. NAD noted
--- NOTE | 2020-08-29 07:40 | NUR ---
Patient provided breakfast. patient tolerated well
--- NOTE | 2020-08-29 08:12 | NUR ---
Called Art Capilla CUSTOMER SUPPLY COORDINATOR and notified regarding patient. per Art will be here GET. no ETA given
--- NOTE | 2020-08-29 09:05 | NUR ---
Patient in bed sleeping but easily arousable. NAD noted
[2020-08-29] MEDS ORDERED: NICOTINE 21 MG/24HR PATCH TD STA (09:09)
--- NOTE | 2020-08-29 09:41 | NUR ---
Art Capilla at bedside to evaluate patient
--- NOTE | 2020-08-29 09:41 | NUR ---
Patient has been psychiatrically cleared by Geronimo Baldwin HAND SHAKER. Patient no longer on a 5150 hold
--- NOTE | 2020-08-29 09:51 | NUR ---
Patient A&O x4. ambulates with steady gait. Speech is clear and able to make needs known / follow commands. Denies any SI / HI / AH / VH. Patient discharged to home in stable condition. Written and verbal after care instructions given. Patient verbalizes understanding of instructions. Stressed follow up or return to ER for worsening s/s. NAD noted
[2020-08-29 10:04] VITALS: BP 133/81
== END 2020-08-29 09:51 | disposition home or self-care (01) ==
LOC: ER 20:40
DX: F10.129 Alcohol abuse with intoxication, unspecified (principal); F15.129 Other stimulant abuse with intoxication, unspecified; Y90.8 Blood alcohol level of 240 mg/100 ml or more; F19.10 Other psychoactive substance abuse, uncomplicated; F31.9 Bipolar disorder, unspecified; R45.851 Suicidal ideations; F17.210 Nicotine dependence, cigarettes, uncomplicated; Z20.828 Contact with and (suspected) exposure to other viral communicable diseases; R00.0 Tachycardia, unspecified; E87.6 Hypokalemia; R79.89 Other specified abnormal findings of blood chemistry; G40.909 Epilepsy, unspecified, not intractable, without status epilepticus; Z87.01 Personal history of pneumonia (recurrent)
CPT/HCPCS: 36415; 80048; 80076; 80299; 80307; 80320; 81001; 85025; 87426; 96372 ×2; 99285; 99406; J1200; J2060; A4663; G0480; J2358

== ENCOUNTER 2022-02-15 04:25 | Emergency (ER) | payer MEDICAID ==
[~2022-02-15] VITALS: Ht 175.3 cm; Wt 65.8 kg
--- NOTE | 2022-02-15 06:42 | NUR ---
Dr. Nilo Palomino at bedside for MSE.
[2022-02-15] MEDS ORDERED: LEVE500T9 PO (07:00)
--- NOTE | 2022-02-15 07:19 | NUR ---
Patient given written and verbal discharge instructions. Patient verbalizes understanding of instructions. Patient is ambulatory with steady gait. Refuses offer of senior living placement. Patient given list of available shelters in surrounding area. Patient out of ER with steady gait, no acute signs of distress, VSS, all belongings taken.
[2022-02-15 07:20] VITALS: BP 130/93
== END 2022-02-15 07:21 | disposition home or self-care (01) ==
LOC: ER 04:29
DX: G40.909 Epilepsy, unspecified, not intractable, without status epilepticus (principal); Z91.14 Patient's other noncompliance with medication regimen; F31.9 Bipolar disorder, unspecified; F19.10 Other psychoactive substance abuse, uncomplicated; Z72.0 Tobacco use
CPT/HCPCS: A4663

== ENCOUNTER 2022-04-05 20:09 | Emergency (ER) | payer SELFPAY ==
[~2022-04-05 20:09] MED LIST changes: -AMOX-430 PO
--- NOTE | 2022-04-05 20:18 | NUR ---
PATIENT WAS CALLED TO BE TRAIGED BUT WAS NOT IN THE WAITING ROOM OR OUTSIDE OF ER.
--- NOTE | 2022-04-05 21:25 | NUR ---
Patient called to be triaged but was not present in the waiting room or outside of ER.
--- NOTE | 2022-04-05 21:35 | NUR ---
PATIENT WAS CALLED TO BE TRIAGED BUT WAS NOT PRESENT IN THE [facility] ROOM OR OUTSIDE OF ER. PATIENT WAS NOT TRIAGED OR SEEN BY ERMD.
== END 2022-04-05 21:30 | disposition left against medical advice (07) ==
LOC: ER 20:11
DX: Z53.21 Procedure and treatment not carried out due to patient leaving prior to being seen by health care provider (principal)

== ENCOUNTER 2022-08-28 09:23 | Inpatient (IN) | payer MEDICAID ==
[~2022-08-28] VITALS: Ht 172.7 cm; Wt 65.4 kg
[2022-08-28] MEDS ORDERED: DIVA500T2 PO (09:34)
[2022-08-28] MEDS ORDERED: LORAZEPAM 2 MG/1 ML VIAL ONE (09:40)
[2022-08-28 09:43] LABS: MEAN CORPUSCULAR HEMOGLOBIN 32.2 uug (23.8-33.4); MEAN CORPUSCULAR VOLUME 94.1 fL (73.0-96.2); PLATELET COUNT (AUTO) 333 K/uL (152-348)
[2022-08-28] MEDS ORDERED: LORAZEPAM 2 MG/1 ML VIAL IM ONE (09:45)
[2022-08-28] MEDS ORDERED: IV NORMAL SALINE 1000 ML BAG IV ONE (09:45)
[2022-08-28 09:59] LABS: ALANINE AMINOTRANSFERASE 34 U/L (16-63); ALKALINE PHOSPHATASE 54 U/L (50-136); ASPARTATE AMINOTRANSFERASE 22 U/L (15-37); BILIRUBIN,DIRECT < 0.1 mg/dL (0.0-0.2); BILIRUBIN,TOTAL 0.3 mg/dL (0.2-1.0); CARBON DIOXIDE 17 mmol/L (21-32); CHLORIDE 104 mmol/L (98-107); CREATININE 1.1 mg/dL (0.6-1.3); GLUCOSE 141 mg/dL (74-106); POTASSIUM 3.8 mmol/L (3.5-5.1); TOTAL PROTEIN, SERUM 7.7 g/dL (6.4-8.2); UREA NITROGEN, BLOOD 13 mg/dL (7-18)
[2022-08-28 10:01] LABS: ACETAMINOPHEN < 2.0 ug/mL (10-30); ETHANOL 8 MG/DL (0-0)
[2022-08-28] MEDS ORDERED: VALPROATE SODIUM 500 MG/5 ML VIAL IV ONE (11:15)
[2022-08-28 11:36] LABS: ABG BASE EXCESS -4.5 mmol/L; ABG HCO3 20.3 mmol/L; ABG PH 7.358 (7.350-7.450); ABG PO2 107.1 mmHg (75.0-100.0); ABG SITE LEFT RADIAL; ABG TOTAL HEMOGLOBIN 13.8 G/dL (13.5-18.0); COHb 0.2 % (0.5-1.5); MetHb 0.4 % (0.0-1.5); O2Hb 97.1 % (94.0-97.0); VENT MODE Nasal Cannula
[2022-08-28] MEDS ORDERED: VALPROATE SODIUM IV 1,000 MG in IV DEXTROSE 5% 100 ML IV ONE (12:00)
[2022-08-28] MEDS ORDERED: IV LACTATED RINGERS SOLUTION 1,000 ML IV ONE (12:45)
[2022-08-28 16:05] VITALS: BP 119/60
[2022-08-28] MEDS ORDERED: ONDANSETRON 4 MG/2 ML VIAL IV PRN (19:00)
[2022-08-28] MEDS ORDERED: ACETAMINOPHEN 325 MG TABLET PO PRN (19:00)
[2022-08-28 20:03] VITALS: BP 137/71
[2022-08-28] MEDS ORDERED: levETIRAcetam 500 MG TABLET PO SCH (21:00)
[2022-08-28] MEDS ORDERED: DIVALPROEX 500 MG TABLET.DR PO SCH (21:00)
[2022-08-29] MEDS ORDERED: ONDANSETRON 4 MG/2 ML VIAL IV PRN
[2022-08-29] MEDS ORDERED: ACETAMINOPHEN 325 MG TABLET PO PRN
[2022-08-29] MEDS ORDERED: REMEDY ESSENTIAL ZINC PASTE 113 GM TP PRN
[2022-08-29 04:03] VITALS: BP 138/73
[2022-08-29] MEDS: PANTOPRAZOLE SODIUM 40 MG TABLET.DR PO SCH (06:21)
[2022-08-29 07:14] LABS: MEAN CORPUSCULAR HEMOGLOBIN 32.4 uug (23.8-33.4); MEAN CORPUSCULAR VOLUME 92.1 fL (73.0-96.2); PLATELET COUNT (AUTO) 243 K/uL (152-348)
[2022-08-29 07:36] LABS: BILIRUBIN,TOTAL 0.6 mg/dL (0.2-1.0); CREATININE 1.2 mg/dL (0.6-1.3); MAGNESIUM 1.9 mg/dL (1.8-2.4); POTASSIUM 3.8 mmol/L (3.5-5.1); TOTAL PROTEIN, SERUM 6.1 g/dL (6.4-8.2)
[2022-08-29] MEDS: levETIRAcetam 500 MG TABLET PO SCH ×2 (08:49→17:16)
[2022-08-29] MEDS: ASPIRIN 81 MG TAB.CHEW PO SCH (08:49)
[2022-08-29] MEDS: DIVALPROEX 500 MG TABLET.DR PO SCH ×2 (08:49→17:16)
[2022-08-29] MEDS: IV LACTATED RINGERS SOLUTION 1,000 ML IV PRN (11:54)
[2022-08-29 16:01] VITALS: BP 117/78
[2022-08-29 20:00] VITALS: BP 99/67
[2022-08-30] VITALS: BP 105/68
[2022-08-30] MEDS: IV LACTATED RINGERS SOLUTION 1,000 ML IV PRN (01:45)
[2022-08-30 05:00] VITALS: BP 110/34
[2022-08-30 06:48] LABS: HEMATOCRIT 36.2 % (36.7-47.1); MEAN CORPUSCULAR HEMOGLOBIN 32.9 uug (23.8-33.4); MEAN CORPUSCULAR VOLUME 93.4 fL (73.0-96.2); PLATELET COUNT (AUTO) 230 K/uL (152-348)
[2022-08-30 06:51] LABS: CREATININE 0.8 mg/dL (0.6-1.3); POTASSIUM 3.6 mmol/L (3.5-5.1)
[2022-08-30] MEDS: PANTOPRAZOLE SODIUM 40 MG TABLET.DR PO SCH (07:13)
[2022-08-30] MEDS: ASPIRIN 81 MG TAB.CHEW PO SCH (08:17)
[2022-08-30] MEDS: DIVALPROEX 500 MG TABLET.DR PO SCH ×2 (08:18→16:22)
[2022-08-30] MEDS: levETIRAcetam 500 MG TABLET PO SCH ×2 (08:18→16:22)
[2022-08-30 12:00] VITALS: BP 109/77
[2022-08-30 16:00] VITALS: BP 108/66
== END 2022-08-30 16:25 | disposition home or self-care (01) | DRG 53 ==
LOC: EDBD → MERGE 09:23 → ER 09:23 → TELE3 13:47
PROVIDERS: ADMIT Nurse Practitioner Acute Care; ATTEND Nurse Practitioner Acute Care
DX: G40.909 Epilepsy, unspecified, not intractable, without status epilepticus (principal); G93.41 Metabolic encephalopathy; E86.0 Dehydration; Z20.822 Contact with and (suspected) exposure to COVID-19; Z91.199 Patient's noncompliance with other medical treatment and regimen due to unspecified reason; F19.90 Other psychoactive substance use, unspecified, uncomplicated; Z87.891 Personal history of nicotine dependence
CPT/HCPCS: 36415; 36600; 70450; 71045; 80164; 83735; 84100; 84484; 85025; 93005; A4663; G0378; G0480; J2060; J3490; J7040; J7120

== ENCOUNTER 2022-11-16 13:10 | Emergency (ER) | payer MEDICAID ==
[~2022-11-16] VITALS: Ht 170.2 cm; Wt 72.6 kg
[~2022-11-16 13:10] MED LIST changes: +DIVA500T2 PO
[2022-11-16 13:37] LABS: HEMATOCRIT 40.2 % (36.7-47.1); MEAN CORPUSCULAR HEMOGLOBIN 31.5 uug (23.8-33.4); MEAN CORPUSCULAR VOLUME 95.1 fL (73.0-96.2); PLATELET COUNT (AUTO) 304 K/uL (152-348)
[2022-11-16 13:48] LABS: CARBON DIOXIDE 20 mmol/L (21-32); CHLORIDE 100 mmol/L (98-107); CREATININE 1.3 mg/dL (0.6-1.3); GLUCOSE 63 mg/dL (74-106); UREA NITROGEN, BLOOD 14 mg/dL (7-18)
--- NOTE | 2022-11-16 13:50 | NUR ---
PT IS IN ROOM #2A. DR NESBITT EVALUATED THE PT.
[2022-11-16 13:54] LABS: ALANINE AMINOTRANSFERASE 32 U/L (16-63); ALKALINE PHOSPHATASE 75 U/L (50-136); ASPARTATE AMINOTRANSFERASE 28 U/L (15-37); BILIRUBIN,DIRECT 0.1 mg/dL (0.0-0.2); PHENYTOIN (DILANTIN) 0.6 ug/mL (10.0-20.0); TOTAL PROTEIN, SERUM 8.1 g/dL (6.4-8.2)
[2022-11-16] MEDS ORDERED: levETIRAcetam IV 1,000 MG in IV DEXTROSE 5% 100 ML IV ONE (14:00)
[2022-11-16 14:18] LABS: ETHANOL < 3 MG/DL (0-0)
[2022-11-16] MEDS ORDERED: DIVALPROEX 500 MG TABLET.DR PO ONE ×2 (14:29→14:30)
[2022-11-16] MEDS ORDERED: ACETAMINOPHEN 325 MG TABLET PO ONE (14:30)
[2022-11-16] MEDS ORDERED: ACETAMINOPHEN 325 MG TABLET ONE (14:30)
[2022-11-16 14:38] LABS: BILIRUBIN,TOTAL 0.3 mg/dL (0.2-1.0)
[2022-11-16] MEDS ORDERED: IV NORMAL SALINE 1000 ML BAG IV ONE (14:45)
--- NOTE | 2022-11-16 15:00 | NUR ---
Social work consult was requested for a patient in the emergency room for homeless and substance abuse resources. Patient is 32-year-old male, and he is alert and oriented X4. Patient presents with depressed mood and congruent affect. Patient states his primary contact is his friend Ricardo Kahn but he did not have his contact information. Patient states he was living with his friend, but "she kicked him out today" and SW provided the patient with resources for [facility] [address] [place] [address] ([phone]) and [facility] [address] [facility] [address] ([phone]). SW gave resources for [facility] [address] [place] [address]. Homeless waiver was signed and given to the patient and a copy was placed in the chart. Patient states he has a history of meth abuse and patient states the last time he used drugs was Tuesday morning. There is no current toxicology report. KILEY provided the patient with resources for substance abuse from [address] [address] ([phone]), [facility] [address] [facility] [address] ([phone]), and [address] [address] ([phone]). KILEY placed the resources in the patients chart. Patient appeared motivated for treatment and states he wants to go to [address] [address] ([phone]), at discharge. Patient states he has a history of bipolar disorder and SW provided the patient with mental health resource for [facility] [address] [place] [address] ([phone]). Patient denies suicidal or homicidal ideation. Patient requests and TAP card and SW provided the TAP card and directions to [address] [address] ([phone]).
[2022-11-16] MEDS ORDERED: GABA-532 PO (16:51)
[2022-11-16] MEDS ORDERED: DIVA500T2 PO (16:51)
--- NOTE | 2022-11-16 17:23 | NUR ---
PT WAS D/C'd TO HOME. D/C INSTRUCTIONS GIVEN TO THE PT BY DR BAHENA.
[2022-11-16 17:24] VITALS: BP 131/72
== END 2022-11-16 17:28 | disposition home or self-care (01) ==
LOC: ER 13:10
DX: G40.909 Epilepsy, unspecified, not intractable, without status epilepticus (principal); Z59.00 Homelessness unspecified; E87.20 Acidosis, unspecified; N17.9 Acute kidney failure, unspecified; Z91.14 Patient's other noncompliance with medication regimen; F31.9 Bipolar disorder, unspecified; F19.10 Other psychoactive substance abuse, uncomplicated; R07.9 Chest pain, unspecified; F15.90 Other stimulant use, unspecified, uncomplicated; Z87.01 Personal history of pneumonia (recurrent)
CPT/HCPCS: 80076; 80048; 80185; 80184; 80164; 85025; 85730; 36415; 93005; 71045; 99285; 96361; 96365; 80320; J1953; J7040; G0480